=== PATIENT | female | born 1975 | race Caucasian/White ===

== ENCOUNTER 2016-09-10 10:42 | Outpatient (CLI) | payer MEDICAID | END 2016-09-10 10:43 | disposition home or self-care (01) | DX: E78.2 Mixed hyperlipidemia (principal) ==

== ENCOUNTER 2017-02-04 13:48 | Outpatient (CLI) | payer MEDICAID ==
--- NOTE | 2017-02-06 09:56 | XRAY Report ---
THREE-VIEW RIGHT KNEE: 02/04/2017 CLINICAL HISTORY: Right knee pain. FINDINGS: Soft tissue appears normal. Mild to moderate narrowing of the medial femoral compartment is seen. Minimal spurring is seen at the tibial spines and about the medial aspect of the medial fem oral condyle. Mild narrowing of the patellofemoral joint with most pronounced change seen along the lateral aspect of this joint. IMPRESSION: MILD OSTEOARTHRITIS OF THE RIGHT KNEE IS NOTED WITH MOST PRONOUNCED CHANGE SEEN IN THE M EDIAL FEMORAL COMPARTMENT AND THE PATELLOFEMORAL COMPARTMENT. JOB #: [id number] EXT JOB #:[id number]
== END 2017-02-04 13:49 | disposition home or self-care (01) ==
LOC: DI.N 13:48
PROVIDERS: ATTEND Physician Assistant Medical
DX: M17.11 Unilateral primary osteoarthritis, right knee (principal)

== ENCOUNTER 2017-05-06 13:42 | Outpatient (CLI) | payer MEDICAID ==
--- NOTE | 2017-05-06 16:06 | MRI Report ---
EXAM: RIGHT KNEE MRI WITHOUT CONTRAST EXAM DATE: 05/06/2017 02:39 PM. CLINICAL HISTORY: Right knee pain. COMPARISON: Right knee radiography from 02/04/2017. TECHNIQUE: Multiplanar, multisequence T1-weighted and fluid-sensitive sequences of the knee without c ontrast. Other: None. FINDINGS: Some of the images are degraded due to patient-related motion artifact. Bones and articular cartilage: Marginal osteophytes at the femoral condyles, tibial plateau, and omalley lla. Marrow edema and sclerosis at the medial tibial plateau. Lateral subluxation of the patella by a pproximately 7 mm. Grade 4 chondromalacia of the medial compartment. Grade 3-4 chondromalacia at the femoral trochlea. Small subcortical cysts and marrow edema at the lateral trochlear facet. There are areas of grade 4 and grade 3 chondromalacia at the lateral patellar facet. Medial Meniscus: Degeneration and tear of the posterior horn. Lateral Meniscus: The lateral meniscus is intact. Cruciate Ligaments: The anterior and posterior cruciate ligaments are intact. Collateral Ligaments: The medial collateral and lateral collateral ligamentous structures are intact. Tendons: The quadriceps, patellar, semimembranosus, and popliteus tendons are unremarkable. Musculature: No edema or fatty atrophy. Other: Small joint effusion. No popliteal cyst. No loose bodies. The medial and lateral retinacula ar e intact. The subcutaneous tissues and fat pads are unremarkable. IMPRESSION: 1. Technically limited exam due to patient-related motion artifact. 2. Tricompartmental osteoarthritis which is most significant at the medial compartment. 3. Degeneration and tear of the posterior horn medial meniscus. 4. Small joint effusion. [facility] MUSCULOSKELETAL RADIOLOGY SECTION Referring Provider Line: [phone] SITE ID: [id number]
== END 2017-05-06 13:43 | disposition home or self-care (01) ==
LOC: DI 13:42
PROVIDERS: ATTEND Physician Assistant Medical
DX: S83.241A Other tear of medial meniscus, current injury, right knee, initial encounter (principal); M17.11 Unilateral primary osteoarthritis, right knee; M25.461 Effusion, right knee

== ENCOUNTER 2017-05-07 08:30 | Outpatient (CLI) | payer MEDICAID ==
--- NOTE | 2017-05-07 12:42 | XRAY Report ---
THREE-VIEW LUMBAR SPINE: 05/07/2017 CLINICAL INDICATION: Acute back pain. FINDINGS: AP, lateral, coned-down views of the lumbar spine demonstrate mild degenerative disc and f acet disease. There is a bilateral L5 pars defect present, with 2 cm anterolisthesis of L5 on S1. N o compression fracture is seen. IMPRESSION: DEGENERATIVE CHANGES, WITH ANTEROLISTHESIS OF L5 ON S1. JOB #: [id number] EXT JOB #:[id number]
== END 2017-05-07 08:31 | disposition home or self-care (01) ==
LOC: DI.N 08:30
PROVIDERS: ATTEND Physician Assistant Medical
DX: M51.36 Other intervertebral disc degeneration, lumbar region (principal); M47.896 Other spondylosis, lumbar region; M43.17 Spondylolisthesis, lumbosacral region
CPT/HCPCS: 72100

== ENCOUNTER 2017-05-21 08:41 | Outpatient (CLI) | payer MEDICAID | END 2017-05-21 08:42 | disposition home or self-care (01) | LOC: SC 08:41 | PROVIDERS: ATTEND Nurse Practitioner Family | DX: G47.33 Obstructive sleep apnea (adult) (pediatric) (principal) | CPT/HCPCS: 99212; 99214 ==

== ENCOUNTER 2017-10-17 08:00 | Outpatient (CLI) | payer MEDICAID ==
[2017-10-17 12:55] LABS: BASOPHILS % (AUTO) 0.5 %; EOSINOPHILS # (AUTO) 0.3 10^3/uL (0.0-0.7); EOSINOPHILS % (AUTO) 3.4 %; HGB - HEMOGLOBIN 14.5 g/dL (12.0-16.0); LYMPHOCYTES # (AUTO) 3.2 10^3/uL (1.5-3.5); LYMPHOCYTES % (AUTO) 35.4 %; MEAN CORPUSCULAR HEMOGLOBIN 32.2 pg (27.0-31.0); MEAN CORPUSCULAR HGB CONC 34.7 g/dL (32.0-36.0); MEAN PLATELET VOLUME 10.4 fL (7.9-10.8); MONOCYTES # (AUTO) 0.4 10^3/uL (0.0-1.0); MONOCYTES % (AUTO) 4.8 %; NEUTROPHILS # (AUTO) 5.1 10^3/uL (1.5-6.6); NEUTROPHILS % (AUTO) 55.9 %; PLT - PLATELET COUNT 197 10^3/uL (130-450); RED BLOOD COUNT 4.51 10^6/uL (4.20-5.40); RED CELL DISTRIBUTION WIDTH 13.2 % (12.0-15.0); WHITE BLOOD COUNT 9.2 x10^3/uL (4.8-10.8)
[2017-10-17 13:06] LABS: ALBUMIN/GLOBULIN RATIO 1.2 (1.0-2.2); ALKALINE PHOSPHATASE 64 IU/L (42-121); ALT ALANINE AMINOTRANSFERASE 25 IU/L (10-60); AST ASPARTATE AMINOTRANSFERASE 22 IU/L (10-42); BILIRUBIN,TOTAL 0.5 mg/dL (0.2-1.0); BUN - BLOOD UREA NITROGEN 14 mg/dL (6-20); CALCIUM 9.2 mg/dL (8.5-10.3); CARBON DIOXIDE - CO2 28 mmol/L (21-32); CHLORIDE 99 mmol/L (101-111); CHOL/HDL RATIO 5.1 (<4.4); CHOLESTEROL 247 mg/dL; CREATININE 0.8 mg/dL (0.4-1.0); GFR - MDRD 78 (>89); GLUCOSE 99 mg/dL (70-100); HDL CHOLESTEROL 48 mg/dL; LDL CHOLESTEROL,CALCULATED 145 mg/dL; SODIUM 135 mmol/L (135-145); TOTAL PROTEIN 7.4 g/dL (6.7-8.2); VLDL CHOLESTEROL 54 mg/dL
== END 2017-10-17 08:01 | disposition home or self-care (01) ==
LOC: LAB.WCP 08:00
PROVIDERS: ATTEND Physician Assistant Medical
DX: Z00.00 Encounter for general adult medical examination without abnormal findings (principal)
CPT/HCPCS: 36415; 80053; 80061; 83721; 84443; 85025

== ENCOUNTER 2018-03-19 14:28 | Outpatient (CLI) | payer MEDICAID ==
--- NOTE | 2018-03-19 15:51 | XRAY Report ---
Reason: CERVICAL RADICULOPATHY Procedure Date: 03/19/2018 Accession Number: [id number] / [id number] Procedure: XR - Cervical Spine 2 View CPT Code: FULL RESULT: EXAM: CERVICAL SPINE RADIOGRAPHY EXAM DATE: 03/19/2018 03:15 PM. CLINICAL HISTORY: Cervical radiculopathy. COMPARISONS: None. TECHNIQUE: 3 views. FINDINGS: Alignment: Normal. No spondylolisthesis or scoliosis. Bones: The cervical vertebral bodies and posterior elements are well visualized from the skull base through C7-T1. No fractures or bone lesions. Disks: Disk space height is maintained with small anterior disk osteophyte complexes at C4-C5 and C5-C6 as well as C6-C7. Facets: No significant degenerative changes. Soft Tissues: Normal. No prevertebral soft tissue swelling. The visualized lung apices are clear. IMPRESSION: Mild degenerative changes. RAD[facility]
== END 2018-03-19 14:29 | disposition home or self-care (01) ==
LOC: DI 14:28
PROVIDERS: ATTEND Family Medicine
DX: M54.12 Radiculopathy, cervical region (principal)
CPT/HCPCS: 72040

== ENCOUNTER 2018-04-22 10:22 | Outpatient (CLI) | payer MEDICAID ==
[2018-04-22 19:10] LABS: ALBUMIN/GLOBULIN RATIO 1.2 (1.0-2.2); ALKALINE PHOSPHATASE 67 IU/L (42-121); ALT ALANINE AMINOTRANSFERASE 15 IU/L (10-60); AST ASPARTATE AMINOTRANSFERASE 16 IU/L (10-42); BILIRUBIN,TOTAL 0.6 mg/dL (0.2-1.0); BUN - BLOOD UREA NITROGEN 18 mg/dL (6-20); CALCIUM 9.3 mg/dL (8.5-10.3); CARBON DIOXIDE - CO2 25 mmol/L (21-32); CHLORIDE 102 mmol/L (101-111); CHOL/HDL RATIO 5.1 (<4.4); CHOLESTEROL 264 mg/dL; CREATININE 0.7 mg/dL (0.4-1.0); GFR - MDRD 91 (>89); GLUCOSE 100 mg/dL (70-100); HDL CHOLESTEROL 52 mg/dL; LDL CHOLESTEROL,CALCULATED 174 mg/dL; LDL/HDL RATIO 3.3 (<4.4); SODIUM 137 mmol/L (135-145); TOTAL PROTEIN 7.3 g/dL (6.7-8.2); VLDL CHOLESTEROL 38 mg/dL
== END 2018-04-22 10:23 | disposition home or self-care (01) ==
LOC: LAB.WCP 10:22
PROVIDERS: ATTEND Physician Assistant Medical
DX: E78.2 Mixed hyperlipidemia (principal)
CPT/HCPCS: 36415; 80053; 80061; 83721

== ENCOUNTER 2018-08-06 08:00 | Outpatient (CLI) | payer MEDICAID ==
[2018-08-06 19:09] LABS: BASOPHILS # (AUTO) 0.1 10^3/uL (0.0-0.1); BASOPHILS % (AUTO) 0.5 %; EOSINOPHILS # (AUTO) 0.5 10^3/uL (0.0-0.7); EOSINOPHILS % (AUTO) 4.3 %; HGB - HEMOGLOBIN 14.8 g/dL (12.0-16.0); LYMPHOCYTES # (AUTO) 2.8 10^3/uL (1.5-3.5); LYMPHOCYTES % (AUTO) 24.6 %; MEAN CORPUSCULAR HEMOGLOBIN 31.9 pg (27.0-31.0); MEAN CORPUSCULAR HGB CONC 33.1 g/dL (32.0-36.0); MEAN CORPUSCULAR VOLUME 96.4 fL (81.0-99.0); MEAN PLATELET VOLUME 9.5 fL (7.9-10.8); MONOCYTES # (AUTO) 0.6 10^3/uL (0.0-1.0); MONOCYTES % (AUTO) 5.3 %; NEUTROPHILS # (AUTO) 7.3 10^3/uL (1.5-6.6); NEUTROPHILS % (AUTO) 65.3 %; PLT - PLATELET COUNT 204 10^3/uL (130-450); RED BLOOD COUNT 4.62 10^6/uL (4.20-5.40); RED CELL DISTRIBUTION WIDTH 13.3 % (12.0-15.0); WHITE BLOOD COUNT 11.3 x10^3/uL (4.8-10.8)
[2018-08-06 19:22] LABS: RHEUMATOID FACTOR NEGATIVE (Negative)
[2018-08-06 19:31] LABS: CRP - C-REACTIVE PROTEIN < 1.0 mg/dL (0-1.0)
[2018-08-08 13:22] LABS: ANA SCREEN NEGATIVE (NEGATIVE)
== END 2018-08-06 23:59 | disposition home or self-care (01) ==
LOC: LAB.WCP 08:00
PROVIDERS: ATTEND Physician Assistant Medical
DX: M25.50 Pain in unspecified joint (principal)
CPT/HCPCS: 36415; 84550; 85025; 85651; 86038; 86140; 86430

== ENCOUNTER 2018-10-28 10:37 | Outpatient (CLI) | payer MEDICAID | END 2018-10-28 10:38 | disposition home or self-care (01) | LOC: SC 10:37 | PROVIDERS: ATTEND Nurse Practitioner Family | DX: G47.33 Obstructive sleep apnea (adult) (pediatric) (principal) | CPT/HCPCS: 99212; 99214 ==

== ENCOUNTER 2019-07-27 08:00 | Outpatient (CLI) | payer MEDICAID ==
[2019-07-27 13:01] LABS: BASOPHILS # (AUTO) 0.1 10^3/uL (0.0-0.1); BASOPHILS % (AUTO) 0.6 %; EOSINOPHILS # (AUTO) 0.6 10^3/uL (0.0-0.7); EOSINOPHILS % (AUTO) 6.5 %; HGB - HEMOGLOBIN 14.5 g/dL (12.0-16.0); LYMPHOCYTES # (AUTO) 3.4 10^3/uL (1.5-3.5); LYMPHOCYTES % (AUTO) 38.4 %; MEAN CORPUSCULAR HEMOGLOBIN 31.5 pg (27.0-31.0); MEAN CORPUSCULAR VOLUME 95.2 fL (81.0-99.0); MEAN PLATELET VOLUME 11.5 fL (7.9-10.8); MONOCYTES # (AUTO) 0.5 10^3/uL (0.0-1.0); MONOCYTES % (AUTO) 5.6 %; NEUTROPHILS # (AUTO) 4.3 10^3/uL (1.5-6.6); NEUTROPHILS % (AUTO) 48.6 %; PLT - PLATELET COUNT 226 10^3/uL (130-450); RED BLOOD COUNT 4.61 10^6/uL (4.20-5.40); RED CELL DISTRIBUTION WIDTH 12.5 % (12.0-15.0); WHITE BLOOD COUNT 8.8 x10^3/uL (4.8-10.8)
[2019-07-27 13:18] LABS: ALBUMIN 3.9 g/dL (3.2-5.5); ALBUMIN/GLOBULIN RATIO 1.2 (1.0-2.2); ALKALINE PHOSPHATASE 69 IU/L (42-121); ALT ALANINE AMINOTRANSFERASE 18 IU/L (10-60); AST ASPARTATE AMINOTRANSFERASE 17 IU/L (10-42); BILIRUBIN,TOTAL 0.6 mg/dL (0.2-1.0); BUN - BLOOD UREA NITROGEN 19 mg/dL (6-20); CALCIUM 9.3 mg/dL (8.5-10.3); CARBON DIOXIDE - CO2 27 mmol/L (21-32); CHLORIDE 101 mmol/L (101-111); CHOL/HDL RATIO 4.3 (<4.4); CHOLESTEROL 289 mg/dL; CREATININE 0.7 mg/dL (0.4-1.0); GFR - MDRD 90 (>89); GLUCOSE 109 mg/dL (70-100); HDL CHOLESTEROL 68 mg/dL; LDL CHOLESTEROL,CALCULATED 184 mg/dL; LDL/HDL RATIO 2.7 (<4.4); SODIUM 136 mmol/L (135-145); TOTAL PROTEIN 7.1 g/dL (6.7-8.2); VLDL CHOLESTEROL 37 mg/dL
== END 2019-07-27 23:59 | disposition home or self-care (01) ==
LOC: LAB.WCP 08:00
PROVIDERS: ATTEND Physician Assistant Medical
DX: Z00.00 Encounter for general adult medical examination without abnormal findings (principal); E78.2 Mixed hyperlipidemia
CPT/HCPCS: 36415; 80053; 80061; 83721; 84443; 85025

== ENCOUNTER 2019-09-14 17:11 | Emergency (ER) | payer MEDICAID ==
--- NOTE | 2019-09-14 18:00 | XRAY Report ---
Reason: CHEST PAIN Procedure Date: 09/14/2019 Accession Number: [id number] / [id number] Procedure: XR - Chest 2 View X-Ray CPT Code: 93781 Final Report FULL RESULT: EXAM: CHEST RADIOGRAPHY EXAM DATE: 09/14/2019 05:37 PM. CLINICAL HISTORY: CHEST PAIN. COMPARISON: CHEST 2 VIEW PA/LAT 06/09/2018 11:27 AM. TECHNIQUE: 2 views. FINDINGS: LUNGS: The lungs are clear. PLEURA: No significant pleural effusion. No clinically significant pneumothorax. MEDIASTINUM: The cardiomediastinal silhouette is unremarkable. BONES: No suspicious osseous lesions. IMPRESSION: No acute cardiopulmonary abnormality. RADIA
[2019-09-14 18:06] LABS: BASOPHILS # (AUTO) 0.1 10^3/uL (0.0-0.1); BASOPHILS % (AUTO) 0.8 %; EOSINOPHILS # (AUTO) 0.6 10^3/uL (0.0-0.7); EOSINOPHILS % (AUTO) 5.9 %; HGB - HEMOGLOBIN 14.6 g/dL (12.0-16.0); LYMPHOCYTES # (AUTO) 3.2 10^3/uL (1.5-3.5); LYMPHOCYTES % (AUTO) 31.7 %; MEAN CORPUSCULAR HEMOGLOBIN 32.3 pg (27.0-31.0); MEAN CORPUSCULAR HGB CONC 34.3 g/dL (32.0-36.0); MEAN CORPUSCULAR VOLUME 94.2 fL (81.0-99.0); MEAN PLATELET VOLUME 10.7 fL (7.9-10.8); MONOCYTES # (AUTO) 0.5 10^3/uL (0.0-1.0); NEUTROPHILS # (AUTO) 5.7 10^3/uL (1.5-6.6); NEUTROPHILS % (AUTO) 56.3 %; PLT - PLATELET COUNT 211 10^3/uL (130-450); RED BLOOD COUNT 4.52 10^6/uL (4.20-5.40); RED CELL DISTRIBUTION WIDTH 12.2 % (12.0-15.0); WHITE BLOOD COUNT 10.1 x10^3/uL (4.8-10.8)
[2019-09-14 18:18] LABS: ALBUMIN 4.1 g/dL (3.2-5.5); ALBUMIN/GLOBULIN RATIO 1.2 (1.0-2.2); BILIRUBIN,TOTAL 0.5 mg/dL (0.2-1.0); CALCIUM 9.4 mg/dL (8.5-10.3); CREATININE 0.7 mg/dL (0.4-1.0); TOTAL PROTEIN 7.6 g/dL (6.7-8.2)
[2019-09-14] MEDS ORDERED: IPRATROPIUM/ALBUTEROL 3 ML NEB INH STA (19:10)
--- NOTE | 2019-09-14 19:16 | ED Physician Documentation ---
History of Present Illness - Stated complaint Stated Complaint: CP - Chief complaint Chief Complaint: Cardiac - History obtained from History obtained from: Patient - History of Present Illness Quality: DISCOMFORT Radiates to: LEFT SHOULDER AND UPPER ARM Improved by: NOTHING Worsened by: EXERTION - Additonal information Additional information: 44 YEAR OLD FEMALE WITH HX OF BRONCHITIS WHO PRESENTS TO THE EMERGENCY DEPARTMENT BECAUSE OF 2-3 DAYS OF SHORTNESS OF BREATH AND FELT LIKE SHE HAD TO USE HER INHALER MORE. SHE CALLED HER DOCTOR'S OFFICE FOR AN INHALER REFILL AND ADMITTED TO EXPERIENCING LEFT SIDED CHEST DISCOMFORT. PATIENT HAD AN EKG DONE AT THE OFFICE AND WAS INSTRUCTED TO COME TO THE EMERGENCY DEPARTMENT FOR FURTHER EVALUATION. SHE QUIT SMOKING 9 MONTHS AGO. PATIENT DENIES FEVER OR CHILLS. SHE REPORTED OF EXERTIONAL DYSPNEA. SHE DENIES ORTHOPNEA. SHE DENIES RECENT SURGERY OR RECENT TRAVELS. PARENTS ARE HEALTHY AND THERE WAS NO FAMILY CARDIAC HISTORY. SHE WAS GIVEN 324 MG ASPIRIN AT HER DOCTOR'S OFFICE. Review of Systems Constitutional: denies: Fever, Chills Eyes: denies: Discharge, Irritation Ears: denies: Ear pain Nose: denies: Rhinorrhea / runny nose Throat: denies: Dental pain / toothache Cardiac: reports: Chest pain / pressure Respiratory: reports: Dyspnea, Wheezing GI: denies: Abdominal Pain, Nausea, Vomiting Skin: denies: Rash Musculoskeletal: denies: Neck pain, Back pain, Extremity pain, Joint pain Psychiatric: denies: Depressed, Suicidal PD PAST MEDICAL HISTORY - Past Medical History Cardiovascular: High cholesterol Respiratory: Sleep apnea, CPAP use Endocrine/Autoimmune: None GI: None : None HEENT: None Psych: Depression, ADD/ADHD Musculoskeletal: Chronic back pain Derm: None - Past Surgical History Past Surgical History: No - Present Medications Home Medications: Ambulatory Orders Medication Instructions Recorded Confirmed Dextroamphetamine/Amphetamine 30 mg 11/23/14 11/23/14 [Adderall 30 mg Tablet] Sertraline HCl [Zoloft] 200 mg 11/23/14 11/23/14 - Allergies Allergies/Adverse Reactions: Allergies Allergy/AdvReac Type Severity Reaction Status Date / Time No Known Drug Allergies Allergy Verified 09/14/19 17:14 - Social History Does the pt smoke?: Yes Smoking Status: Current every day smoker Does the pt drink ETOH?: No Does the pt have substance abuse?: No - Immunizations Immunizations are current?: No Immunizations: TDAP >10years/unknown PD ED PE NORMAL - General General: Alert and oriented X 3, Other - HEENT HEENT: Atraumatic - Neck Neck: Supple, no meningeal sign - Cardiac Cardiac: RRR - Respiratory Respiratory: Other (MILD EXPIRATORY WHEEZES) - Abdomen Abdomen: Normal bowel sounds, Soft - Derm Derm: Normal color, Warm and dry - Extremities Extremities: No deformity, No tenderness to palpate, Normal ROM s pain - Neuro Neuro: Alert and oriented X 3 Eye Opening: Spontaneous Motor: Obeys Commands Verbal: Oriented GCS Score: 15 - Psych Psych: Normal mood Results - Vitals Vitals: Oxygen O2 Source Room air - EKG (time done) 1721 Rate: Rate (enter#) (76) Sheldon: Normal Intervals: Normal SC, Prolonged QT QRS: Normal Ischemia: Non specific changes - Labs Labs: Laboratory Tests 09/14/19 09/14/19 09/14/19 18:02 18:02 18:02 WBC 10.1 RBC 4.52 Hgb 14.6 Hct 42.6 MCV 94.2 MCH 32.3 H MCHC 34.3 RDW 12.2 Plt Count 211 MPV 10.7 Neut # (Auto) 5.7 Lymph # (Auto) 3.2 Evangeline # (Auto) 0.5 Eos # (Auto) 0.6 Baso # (Auto) 0.1 Absolute Nucleated RBC 0.00 Nucleated RBC % 0.0 D-Dimer Sodium 137 Potassium 3.6 Chloride 98 L Carbon Dioxide 28 Anion Gap 11.0 BUN 15 Creatinine 0.7 Estimated GFR (MDRD) 90 Glucose 104 H Calcium 9.4 Magnesium Total Bilirubin 0.5 AST 19 ALT 21 Alkaline Phosphatase 65 Troponin I High Sens 8.0 B-Natriuretic Peptide Total Protein 7.6 Albumin 4.1 Globulin 3.5 Albumin/Globulin Ratio 1.2 Lipase 29 Serum HCG, Qual 09/14/19 09/14/19 09/14/19 18:02 18:02 18:02 WBC RBC Hgb Hct MCV MCH MCHC RDW Plt Count MPV Neut # (Auto) Lymph # (Auto) Evangeline # (Auto) Eos # (Auto) Baso # (Auto) Absolute Nucleated RBC Nucleated RBC % D-Dimer < 200.0 L Sodium Potassium Chloride Carbon Dioxide Anion Gap BUN Creatinine Estimated GFR (MDRD) Glucose Calcium Magnesium Total Bilirubin AST ALT Alkaline Phosphatase Troponin I High Sens B-Natriuretic Peptide 14 Total Protein Albumin Globulin Albumin/Globulin Ratio Lipase Serum HCG, Qual NEGATIVE 09/14/19 09/14/19 18:03 19:50 WBC RBC Hgb Hct MCV MCH MCHC RDW Plt Count MPV Neut # (Auto) Lymph # (Auto) Evangeline # (Auto) Eos # (Auto) Baso # (Auto) Absolute Nucleated RBC Nucleated RBC % D-Dimer Sodium Potassium Chloride Carbon Dioxide Anion Gap BUN Creatinine Estimated GFR (MDRD) Glucose Calcium Magnesium 2.2 Total Bilirubin AST ALT Alkaline Phosphatase Troponin I High Sens 7.2 B-Natriuretic Peptide Total Protein Albumin Globulin Albumin/Globulin Ratio Lipase Serum HCG, Qual PD MEDICAL DECISION MAKING - ED course Complexity details: re-evaluated patient, d/w patient ED course: 44 YEAR OLD FEMALE WHO PRESENTED TO THE EMERGENCY DEPARTMENT OF SHORTNESS OF BREATH, CHEST PAIN. EKG DID NOT SHOW ST ELEVATION MYOCARDIAL INFARCTION. NONSPECIFIC ST CHANGES WERE NOTED. SERIAL TROPONINS WERE NEGATIVE. D-DIMER WAS NEGATIVE. PATIENT WAS GIVEN A DUONBE TREATMENT WITH IMPROVEMENT WITH HER BREATHING. SYMPTOMS WERE MOST CONSISTENT WITH BRONCHITIS. SHE WAS GIVEN 1 DOSE OF DECADRON HERE IN THE EMERGENCY DEPARTMENT. I RECOMMEND OUTPATIENT FOLLOW UP ABOUT HER CHEST PAIN AND SHORTNESS OF BREATH. HEART SCORE OF 3. DIAGNOSIS AND TREATMENT PLAN WERE DISCUSSED. OUTPATIENT FOLLOW UP WITH PCP IN 1 WEEK WAS RECOMMENDED. STRICT RETURN INSTRUCTIONS WERE GIVEN. PATIENT WAS DISCHARGED IN STABLE CONDITION. Departure - Departure Disposition: 01 Home, Self Care Clinical Impression: Chest pain, Reactive airway disease, Elevated BP without diagnosis of hypertension Condition: Stable Instructions: Risk Factors High Blood Pressure, ED Wheezing, ED Chest Pain Atypical Unkn Cause Follow-Up: Christi Mathew PA-C [Primary Care Provider] - Within 1 week Comments: PLEASE FOLLOW UP WITH YOUR REGULAR DOCTOR SOON POSSIBLE IN 1 WEEK. YOUR BLOOD PRESSURE WAS ELEVATED AND PLEASE FOLLOW UP WITH YOUR DOCTOR FOR RECHECK. Discharge Date/Time: 09/14/19 20:49
[2019-09-14 19:37] LABS: HCG,QUALITATIVE BLOOD NEGATIVE
[2019-09-14 20:26] VITALS: BP 144/90
[2019-09-14] MEDS ORDERED: CHERRY SYRUP 10 ML UDC PO ONE (20:34)
[2019-09-14] MEDS ORDERED: DEXAMETHASONE 10 MG/ML VIAL PO STA (20:34)
== END 2019-09-14 20:49 | disposition home or self-care (01) ==
LOC: ED 17:11
DX: R07.89 Other chest pain (principal); J45.909 Unspecified asthma, uncomplicated; R94.31 Abnormal electrocardiogram [ECG] [EKG]; R03.0 Elevated blood-pressure reading, without diagnosis of hypertension; Z87.891 Personal history of nicotine dependence
CPT/HCPCS: 36415; 71046; 80053; 83690; 83735; 83880; 84484; 84703; 85025; 85379; 93005; 94640; 94664; 99284; A9270

== ENCOUNTER 2020-07-26 08:00 | Outpatient (CLI) | payer MEDICAID ==
[2020-07-26 18:56] LABS: ALBUMIN 4.2 g/dL (3.2-5.5); ALBUMIN/GLOBULIN RATIO 1.2 (1.0-2.2); ALKALINE PHOSPHATASE 77 IU/L (42-121); ALT ALANINE AMINOTRANSFERASE 19 IU/L (10-60); AST ASPARTATE AMINOTRANSFERASE 16 IU/L (10-42); BILIRUBIN,TOTAL 0.8 mg/dL (0.2-1.0); BUN - BLOOD UREA NITROGEN 18 mg/dL (6-20); CALCIUM 9.8 mg/dL (8.5-10.3); CARBON DIOXIDE - CO2 28 mmol/L (21-32); CHLORIDE 101 mmol/L (101-111); CHOL/HDL RATIO 5.1 (<4.4); CHOLESTEROL 290 mg/dL; CREATININE 0.6 mg/dL (0.4-1.0); GLUCOSE 107 mg/dL (70-100); HDL CHOLESTEROL 57 mg/dL; LDL CHOLESTEROL,CALCULATED 190 mg/dL; LDL/HDL RATIO 3.3 (<4.4); SODIUM 138 mmol/L (135-145); TOTAL PROTEIN 7.7 g/dL (6.7-8.2); VLDL CHOLESTEROL 43 mg/dL
[2020-07-26 19:01] LABS: BASOPHILS # (AUTO) 0.1 10^3/uL (0.0-0.1); BASOPHILS % (AUTO) 0.9 %; EOSINOPHILS # (AUTO) 0.7 10^3/uL (0.0-0.7); EOSINOPHILS % (AUTO) 8.6 %; HGB - HEMOGLOBIN 15.4 g/dL (12.0-16.0); LYMPHOCYTES # (AUTO) 2.2 10^3/uL (1.5-3.5); LYMPHOCYTES % (AUTO) 28.6 %; MEAN CORPUSCULAR HEMOGLOBIN 31.6 pg (27.0-31.0); MEAN CORPUSCULAR HGB CONC 33.4 g/dL (32.0-36.0); MEAN CORPUSCULAR VOLUME 94.5 fL (81.0-99.0); MEAN PLATELET VOLUME 11.5 fL (7.9-10.8); MONOCYTES # (AUTO) 0.4 10^3/uL (0.0-1.0); MONOCYTES % (AUTO) 5.3 %; NEUTROPHILS # (AUTO) 4.3 10^3/uL (1.5-6.6); NEUTROPHILS % (AUTO) 56.3 %; PLT - PLATELET COUNT 251 10^3/uL (130-450); RED BLOOD COUNT 4.88 10^6/uL (4.20-5.40); RED CELL DISTRIBUTION WIDTH 12.1 % (12.0-15.0); WHITE BLOOD COUNT 7.7 x10^3/uL (4.8-10.8)
[2020-07-26 19:02] LABS: THYROID STIMULATING HORMONE 1.45 uIU/mL (0.34-5.60)
[2020-07-26 19:04] LABS: FREE T4 (FREE THYROXINE) 0.87 ng/dL (0.58-1.64)
== END 2020-07-26 23:59 | disposition home or self-care (01) ==
LOC: LAB.WCP 08:00
PROVIDERS: ATTEND Physician Assistant Medical
DX: Z00.00 Encounter for general adult medical examination without abnormal findings (principal)
CPT/HCPCS: 36415; 80053; 80061; 83721; 84439; 84443; 85025

== ENCOUNTER 2020-07-26 17:02 | Outpatient (CLI) | payer MEDICAID ==
--- NOTE | 2020-07-26 17:31 | XRAY Report ---
PROCEDURE: Chest 2 View X-Ray INDICATIONS: INTERMITTENT ASTHMA TECHNIQUE: 2 view(s) of the chest. COMPARISON: None. FINDINGS: Surgical changes and devices: None. Lungs and pleura: No pleural effusions or pneumothorax. Lungs are clear. Mediastinum: Mediastinal contours are normal. Heart size is normal. Bones and chest wall: No suspicious bony abnormalities. Soft tissues appear unremarkable. IMPRESSION: Normal chest. Reviewed by: John Galan MD on 07/26/2020 5:30 PM PST Approved by: John Galan MD on 07/26/2020 5:30 PM PST Station ID: [id number]
== END 2020-07-26 17:03 | disposition home or self-care (01) ==
LOC: DI.N 17:02
PROVIDERS: ATTEND Physician Assistant Medical
DX: J45.20 Mild intermittent asthma, uncomplicated (principal)

== ENCOUNTER 2020-12-27 10:30 | Outpatient (CLI) | payer MEDICAID ==
--- NOTE | 2020-12-27 11:11 | SLEEP CARE CONSULTATION ---
Information from patient questionnaire entered by Kady Santillan. I have reviewed and concur with the information entered by Kady Santillan. This document represents the service I personally performed and the decisions made by , Gayla Yang ARNP. History of Present Illness Service Date and Time: 12/27/2020 1030 Previous diagnosis: Extremely Severe, Obstructive Sleep Apnea-Hypopnea Syndrome AHI: 113.8 (in 2011) Reason for follow up: annual (last seen 10/2018) Equipment type: CPAP Equipment obtained from: [employer] (getting supplies as needed) Mask style: Full face Backup mask available: Yes (old mask) Last cushion change: 4 months Prior sleep studies: Yes Year and Where: 2011 - [facility] HPI additional information: VALERIO WADE was diagnosed to have extremely severe, AHI 113.8, obstructive sleep apnea-hypopnea syndrome and returned today for CPAP therapy annual follow- up. CPAP Compliance Data - Data Reviewed with Patient Average duration of nightly device use: 11 hr 3 min Compliance rate %: 93.9 (180 days) Current pressure setting (cmH2O): 13 Humidity settin Average residual AHI: 6.7 Average large leak: 5 min 58 sec Subjective Patient concerns: reports: mask discomfort, air blowing in eyes, other (general issues). denies: aerophagia, mask leak noise, condensation in mask/hose, nasal congestion, dry mouth, nose, throat, epistaxis Observed to snore while using device: No (don't know) Current pressure setting perceived as: comfortable On therapy, patient: reports: sleeping better, awakening more refreshed, being more awake and alert during the day, more rested overall. denies: drowsiness while driving Initial [place] Sleepiness Scale score: 9 (in 2012) Current [place] Sleepiness Scale score: 10 Allergies and Home Medications Home medication list reviewed: Yes Allergy and home medication list: stopped cymbalta started Prozac Adderall Review of Systems Review of systems same as previous: Yes (no changes) Physical Exam Heart Rate: 71 O2 Saturation: 97 Height: 5 ft 7 in Weight: 295 lb Body Mass Index: 46.2 BMI Classification: Morbidly Obese Impression and Plan 1. Obstructive Sleep Apnea-Hypopnea Syndrome, extremely severe, with good treatment compliance and fair apnea control with mildly elevated residual AHI. On CPAP therapy, the patient has better sleep quality and is more rested overall. The patients pressure will be changed to autoCPAP 14 cmH20 for elevation of residual AHI. Patient advised to contact me if pressure change is uncomfortable so that it can be adjusted. Goals for apnea control discussed. Patient would like to try a different mask she is using currently sores on her face seem to be permanent. I will write for mask refitting. Patient's apnea severity and rationale for treatment to reduce apnea, improve sleep quality and reduce cardiovascular and cerebrovascular events was reviewed. I also reviewed the benefit of consistent device use of CPAP for depression and fibromyalgia. * Mask refitting * Change auto CPAP pressure to 14 cmH2O * Notify me if snoring with mask or feeling that the pressure is too much or too little * Attempt to lose weight * Call this office if any problems using CPAP * Return for follow up in 1 year, or sooner if concerns arise Counseling Topics: Spare mask, Weight loss health impact Visit Type: In Office Time Spent with Patient (minutes): 22 Provider Statement: I spent 100% of the Face to Face Visit with the patient with greater than 50% spent counseling the patient and coordination of care.
== END 2020-12-27 10:31 | disposition home or self-care (01) ==
LOC: SC 10:30
PROVIDERS: ATTEND Nurse Practitioner Family
DX: G47.33 Obstructive sleep apnea (adult) (pediatric) (principal); E66.01 Morbid (severe) obesity due to excess calories; Z68.42 Body mass index [BMI] 45.0-49.9, adult
CPT/HCPCS: 99212; 99213

== ENCOUNTER 2021-02-09 08:00 | Outpatient (CLI) | payer MEDICAID ==
[2021-02-09 17:55] LABS: CHOL/HDL RATIO 3.3 (<4.4); CHOLESTEROL 277 mg/dL; HDL CHOLESTEROL 84 mg/dL; LDL CHOLESTEROL,CALCULATED 173 mg/dL; LDL/HDL RATIO 2.1 (<4.4); TRIGLYCERIDES 99 mg/dL; VLDL CHOLESTEROL 20 mg/dL
== END 2021-02-09 23:59 | disposition home or self-care (01) ==
LOC: LAB.WCP 08:00
PROVIDERS: ATTEND Physician Assistant Medical
DX: E78.2 Mixed hyperlipidemia (principal)
CPT/HCPCS: 36415; 80061; 83721

== ENCOUNTER 2021-07-12 15:51 | Outpatient (CLI) | payer MEDICAID ==
[2021-07-12 16:14] VITALS: BP 138/78
--- NOTE | 2021-07-12 16:14 | SLEEP CARE CONSULTATION ---
Information from patient questionnaire entered by Angelique Odom MA. I have reviewed and concur with the information entered by Angelique Odom MA. This document represents the service I personally performed and the decisions made by , Gayla Yang ARNP. History of Present Illness Service Date and Time: 07/12/2021 1551 Previous diagnosis: Extremely Severe, Obstructive Sleep Apnea-Hypopnea Syndrome AHI: 113.8 (in 2011) Reason for follow up: first compliance (SET UP 04/18, REPL DEVICE, RESMED/ROTECH), first compliance after device update Equipment type: CPAP Equipment obtained from: [email or web address] (getting supplies as needed) Mask style: Full face Backup mask available: Yes (old mask) Last cushion change: a few days ago Prior sleep studies: Yes Year and Where: 2011 - [facility] HPI additional information: VALERIO WADE was diagnosed to have extremely severe, AHI 113.8, obstructive sleep apnea-hypopnea syndrome and returned today for CPAP therapy first compliance after updating device follow-up. Sleep Study - Results Prior sleep studies: Yes Year and Where: 2011 - [facility] CPAP Compliance Data - Data Reviewed with Patient Average duration of nightly device use: 11 HOURS 6 MINUTES Compliance rate %: 90 Current pressure setting (cmH2O): 14 Average residual AHI: 6.6 Central apnea: .6 Obstructive apnea: 4.3 Subjective Patient concerns: denies: aerophagia, mask discomfort, air blowing in eyes, mask leak noise, condensation in mask/hose, nasal congestion, dry mouth, nose, throat, epistaxis, other Observed to snore while using device: No Current pressure setting perceived as: comfortable On therapy, patient: reports: sleeping better, awakening more refreshed, being more awake and alert during the day, more rested overall. denies: drowsiness while driving Initial [place] Sleepiness Scale score: 9 (in 2011) Current [place] Sleepiness Scale score: 6 (2020) Allergies and Home Medications Home medication list reviewed: Yes (Meloxicam ) Review of Systems Review of systems same as previous: No (getting eyelid procedure in July ()) Physical Exam Vital signs obtained and entered by: CARLA DELGADO Blood Pressure: 138/78 (LEFT) Cuff size: wrist Heart Rate: 89 O2 Saturation: 97 (CLOTH MASK) Height: 5 ft 7 in Weight: 295 lb Body Mass Index: 46.2 BMI Classification: Morbidly Obese Impression and Plan 1. Obstructive Sleep Apnea-Hypopnea Syndrome, extremely severe, with good treatment compliance and fair apnea control with minimal elevation of residual AHI. On CPAP therapy, the patient has better sleep quality and is more rested overall. The patients pressure will be changed to autoCPAP 15 cmH20 for elevation of residual AHI. Patient advised to contact me if pressure change is uncomfortable so that it can be adjusted. Goals for apnea control discussed. Patient's apnea severity and rationale for treatment to reduce apnea, improve sleep quality and reduce cardiovascular and cerebrovascular events was reviewed. I also reviewed the benefit of consistent device use of CPAP for depression and fibromyalgia. Patient current BMI is 46.2. Obesity increases the risk of apnea, CPAP pressure requirements and overall health risks especially cardiovascular and diabetes. Thus patient is advised to try to lose weight. Weight loss can be done with reducing portion size, reducing refined foods and balancing content with vegetables, fruit and whole grain foods. In addition, patient encouraged to get regular exercise. Patient was encouraged to lose weight for their overall health and to reduce apneas. She voiced understanding. * Change auto CPAP pressure to 15 cmH2O * Notify me if snoring with mask or feeling that the pressure is too much or too little * Attempt to lose weight * Call this office if any problems using CPAP * Return for follow up in 1 year, or sooner if concerns arise Counseling Topics: Spare mask, Weight loss health impact Visit Type: In Office Time Spent with Patient (minutes): 10 Provider Statement: I spent 100% of the Face to Face Visit with the patient with greater than 50% spent counseling the patient and coordination of care.
== END 2021-07-12 15:52 | disposition home or self-care (01) ==
LOC: SC 15:51
PROVIDERS: ATTEND Nurse Practitioner Family
DX: G47.33 Obstructive sleep apnea (adult) (pediatric) (principal); E66.01 Morbid (severe) obesity due to excess calories; Z68.42 Body mass index [BMI] 45.0-49.9, adult
CPT/HCPCS: 99212

== ENCOUNTER 2021-08-14 08:00 | Outpatient (CLI) | payer MEDICAID ==
[2021-08-14 10:47] LABS: MUDS CUTOFF CONCENTRATIONS CUTOFF CONC BELOW:
[2021-08-14 18:50] LABS: BASOPHILS # (AUTO) 0.1 10^3/uL (0.0-0.1); BASOPHILS % (AUTO) 0.7 %; EOSINOPHILS # (AUTO) 0.4 10^3/uL (0.0-0.7); HGB - HEMOGLOBIN 14.3 g/dL (12.0-16.0); LYMPHOCYTES % (AUTO) 27.1 %; MEAN CORPUSCULAR HGB CONC 31.8 g/dL (32.0-36.0); MEAN CORPUSCULAR VOLUME 97.6 fL (81.0-99.0); MEAN PLATELET VOLUME 11.8 fL (7.9-10.8); MONOCYTES # (AUTO) 0.5 10^3/uL (0.0-1.0); MONOCYTES % (AUTO) 6.5 %; NEUTROPHILS # (AUTO) 4.5 10^3/uL (1.5-6.6); NEUTROPHILS % (AUTO) 60.4 %; PLT - PLATELET COUNT 221 10^3/uL (130-450); RED BLOOD COUNT 4.61 10^6/uL (4.20-5.40); RED CELL DISTRIBUTION WIDTH 12.8 % (12.0-15.0); WHITE BLOOD COUNT 7.4 x10^3/uL (4.8-10.8)
[2021-08-14 18:56] LABS: AMPHETAMINE SCREEN,URINE POSITIVE (NEGATIVE); BARBITURATE SCREEN,UR NEGATIVE (NEGATIVE); BENZODIAZEPINES SCREEN, URINE NEGATIVE (NEGATIVE); COCAINE SCREEN URINE NEGATIVE (NEGATIVE); METHADONE SCREEN, URINE NEGATIVE (NEGATIVE); METHAMPHETAMINES SCREEN, URINE NEGATIVE (NEGATIVE); OPIATE SCREEN, URINE NEGATIVE (NEGATIVE); OXYCODONE SCREEN, URINE NEGATIVE (NEGATIVE); PROPOXYPHENE SCREEN, URINE NEGATIVE (NEGATIVE); THC CANNABINOID SCREEN, URINE POSITIVE (NEGATIVE); TRICYCLIC ANTIDEPRESSANT,URINE NEGATIVE (NEGATIVE)
[2021-08-14 19:47] LABS: ALBUMIN/GLOBULIN RATIO 1.2 (1.0-2.2); ALKALINE PHOSPHATASE 70 IU/L (42-121); ALT ALANINE AMINOTRANSFERASE 18 IU/L (10-60); AST ASPARTATE AMINOTRANSFERASE 16 IU/L (10-42); BILIRUBIN,TOTAL 0.5 mg/dL (0.2-1.0); BUN - BLOOD UREA NITROGEN 19 mg/dL (6-20); CALCIUM 8.7 mg/dL (8.5-10.3); CARBON DIOXIDE - CO2 27 mmol/L (21-32); CHLORIDE 98 mmol/L (101-111); CHOL/HDL RATIO 3.6 (<4.4); CHOLESTEROL 292 mg/dL; CREATININE 0.7 mg/dL (0.4-1.0); GFR - MDRD 90 (>89); GLUCOSE 98 mg/dL (70-100); HDL CHOLESTEROL 82 mg/dL; LDL CHOLESTEROL,CALCULATED 187 mg/dL; LDL/HDL RATIO 2.3 (<4.4); POTASSIUM 3.8 mmol/L (3.5-5.0); SODIUM 135 mmol/L (135-145); TOTAL PROTEIN 7.3 g/dL (6.7-8.2); TRIGLYCERIDES 115 mg/dL; VLDL CHOLESTEROL 23 mg/dL
[2021-08-14 19:48] LABS: THYROID STIMULATING HORMONE 2.62 uIU/mL (0.34-5.60)
== END 2021-08-14 23:59 | disposition home or self-care (01) ==
LOC: LAB.WCP 08:00
PROVIDERS: ATTEND Psychiatry & Neurology Psychiatry
DX: Z00.00 Encounter for general adult medical examination without abnormal findings (principal); Z79.899 Other long term (current) drug therapy; E78.2 Mixed hyperlipidemia
CPT/HCPCS: 36415; 80053; 80061; 80306; 83721; 84443; 85025

== ENCOUNTER 2021-09-25 11:01 | Outpatient (CLI) | payer MEDICAID | END 2021-09-25 11:02 | disposition home or self-care (01) | LOC: NS 11:01 | PROVIDERS: ATTEND Physician Assistant Medical | DX: Z71.3 Dietary counseling and surveillance (principal); E66.01 Morbid (severe) obesity due to excess calories; Z68.42 Body mass index [BMI] 45.0-49.9, adult | CPT/HCPCS: 97802 ==

== ENCOUNTER 2021-10-03 15:27 | Outpatient (CLI) | payer MEDICAID ==
[2021-10-04 04:16] LABS: ESTRADIOL 25 pg/mL; PROGESTERONE <0.5 ng/mL
[2021-10-08 07:06] LABS: HDL LARGE 10145 nmol/L (>6729); LDL MEDIUM 514 nmol/L (<215); LDL PARTICLE NUMBER 2358 nmol/L (<1138); LDL PATTERN A Pattern (A); LDL PEAK SIZE 224.8 Angstrom (>222.9); LDL SMALL 277 nmol/L (<142)
[2021-10-08 17:11] LABS: FREE TESTOSTERONE 2.3 pg/mL (0.1-6.4)
== END 2021-10-03 15:28 | disposition home or self-care (01) ==
LOC: LAB.N 15:27
PROVIDERS: ATTEND Physician Assistant Medical
DX: F32.A Depression, unspecified (principal); E78.2 Mixed hyperlipidemia
CPT/HCPCS: 36415; 81599; 82626; 82670; 82671; 83525; 83704; 84144; 84270; 84402; 84403

== ENCOUNTER 2021-10-09 10:03 | Outpatient (CLI) | payer MEDICAID | END 2021-10-09 10:04 | disposition home or self-care (01) | LOC: NS 10:03 | PROVIDERS: ATTEND Physician Assistant Medical | DX: Z71.3 Dietary counseling and surveillance (principal); E66.01 Morbid (severe) obesity due to excess calories; Z68.42 Body mass index [BMI] 45.0-49.9, adult | CPT/HCPCS: 97803 ==

== ENCOUNTER 2021-10-17 15:48 | Outpatient (CLI) | payer MEDICAID ==
--- NOTE | 2021-10-19 15:09 | Mammography Report ---
BILATERAL DIGITAL SCREENING MAMMOGRAM 3D/2D: 10/17/2021 CLINICAL: Routine screening. Comparison is made to exam dated: 06/04/2016 mammogram - [facility]. There are sc attered fibroglandular elements in both breasts. No significant masses, calcifications, or other findings are seen in either breast. There has been no significant interval change. IMPRESSION: NEGATIVE There is no mammographic evidence of malignancy. A 1 year screening mammogram is recommended. This exam was interpreted at Station ID: [id number]. NOTE: For mammograms, a report in lay terms will be sent to the patient. Approximately 15% of breast malignancies will not be visualized mammographically. In the management of a palpable breast mass, a negative mammogram must not discourage biopsy of a clinically suspicious lesion. Electronically Signed By: Jovani mitchell/leonardo:10/18/2021 09:12:53 ACR BI-RADS Category 1: Negative 3341F PARENCHYMAL PATTERN: (A) - The breast(s) demonstrate(s) scattered fibroglandular densities. BI-RADS CATEGORY: (1) - 1 RECOMMENDATION: (ANNUAL) - Recommend routine annual screening mammography. [id number] 1 year screening LATERALITY: (B)
== END 2021-10-17 15:49 | disposition home or self-care (01) ==
LOC: DI.N 15:48
DX: Z12.31 Encounter for screening mammogram for malignant neoplasm of breast (principal)

== ENCOUNTER 2021-10-30 13:04 | Outpatient (CLI) | payer MEDICAID | END 2021-10-30 13:05 | disposition home or self-care (01) | LOC: NS 13:04 | PROVIDERS: ATTEND Physician Assistant Medical | DX: Z71.3 Dietary counseling and surveillance (principal); E66.01 Morbid (severe) obesity due to excess calories; Z68.42 Body mass index [BMI] 45.0-49.9, adult | CPT/HCPCS: 97803 ==

== ENCOUNTER 2022-04-16 19:59 | Emergency (ER) | payer MEDICAID ==
--- NOTE | 2022-04-16 21:07 | ED Physician Documentation ---
History of Present Illness - Stated complaint Stated Complaint: GLASS IN FOOT - Chief complaint Chief Complaint: Laceration - History obtained from History obtained from: Patient - History of Present Illness Timing: Today Pain level max: 3 Pain level now: 2 - Additonal information Additional information: Patient is a 46-year-old female who presents to the emergency department stating that she believes she may have stepped on a piece of glass in her kitchen tonight. She believes her tetanus shot is up-to-date. She states that she is concerned about a piece of glass being stuck in the bottom of her foot. She states her son tried to take it out with tweezers. They could not feel any glass. She cannot see any glass. She states that a glass bowl was broken about a week ago but she thought she cleaned up all of the pieces. Worse with walking, better with rest. No active bleeding. Review of Systems Constitutional: denies: Fever, Chills : denies: Now [place] [facility] PAST MEDICAL HISTORY - Past Medical History Cardiovascular: High cholesterol Respiratory: Sleep apnea, CPAP use Endocrine/Autoimmune: None GI: None : None HEENT: None Psych: Depression, ADD/ADHD Musculoskeletal: Chronic back pain Derm: None - Past Surgical History Past Surgical History: No - Present Medications Home Medications: Ambulatory Orders Medication Instructions Recorded Confirmed Dextroamphetamine/Amphetamine 30 mg 11/23/14 11/23/14 [Adderall 30 mg Tablet] Sertraline HCl [Zoloft] 200 mg 11/23/14 11/23/14 - Allergies Allergies/Adverse Reactions: Allergies Allergy/AdvReac Type Severity Reaction Status Date / Time No Known Drug Allergies Allergy Verified 04/16/22 20:11 - Social History Does the pt smoke?: Yes Smoking Status: Current every day smoker Does the pt drink ETOH?: No Does the pt have substance abuse?: No - Immunizations Immunizations are current?: No Immunizations: TDAP >10years/unknown PD ED PE NORMAL - Vitals Vital signs reviewed: Yes - General General: Alert and oriented X 3, No acute distress - Derm Derm: Warm and dry - Extremities Extremities: Other (R foot - 0.5 cm laceration to the plantar aspect, midfoot. No palpable foreign bodies. No visible foreign bodies. Neurovascular intact.) - Neuro Neuro: Alert and oriented X 3 - Psych Psych: Normal mood, Normal affect Results - Vitals Vitals: Vital Signs - 24 hr 04/16/22 20:07 Temperature 36.1 C L Heart Rate 79 Respiratory 16 Rate Blood Pressure 142/83 H O2 Saturation 98 Oxygen O2 Source Simple Mask - Rads (name of study) Right foot x-ray Radiology: Final report received, EMP read contemporaneously, See rad report (No acute bony abnormality. No foreign body.) PD MEDICAL DECISION MAKING - ED course Complexity details: reviewed results, re-evaluated patient, considered differential, d/w patient ED course: The wound was anesthetized with 1% lidocaine with epinephrine. The wound was explored with forceps. No palpable foreign bodies. No visible foreign body on x-ray. Wound care performed. Will continue wound care at home and have her follow-up with her doctor as needed. Patient counseled regarding signs and symptoms for which I believe and urgent re-evaluation would be necessary. Patient with good understanding of and agreement to plan and is comfortable going home at this time This document was made in part using voice recognition software. While efforts are made to proofread this document, sound alike and grammatical errors may occur. Departure - Departure Disposition: 01 Home, Self Care Clinical Impression: Laceration of plantar aspect of foot Qualifiers: Encounter type: initial encounter Laterality: right Qualified Code(s): S91.311A - Laceration without foreign body, right foot, initial encounter Condition: Good Instructions: ED Laceration Foot Follow-Up: Christi Mathew PA-C [Primary Care Provider] - As Needed Comments: This wound should heal without further issue. Please follow-up with your doctor as needed for further care. There is no evidence of foreign body on x-ray today. No evidence of foreign body on examination. Return if you notice redness, swelling or drainage from the wound.
[2022-04-16] MEDS ORDERED: LIDOCAINE-EPINEPH-TETRACAINE 3 ML SYRINGE TOP STA (21:11)
[2022-04-16] MEDS ORDERED: BACITRACIN ZINC OINT 1 PACKET TOP STA (21:28)
--- NOTE | 2022-04-16 21:32 | XRAY Report ---
PROCEDURE: Foot 3 View RT INDICATIONS: poss plantar FB TECHNIQUE: 3 views of the foot were acquired. COMPARISON: None. FINDINGS: Bones: No fractures or dislocations. There is moderate midfoot degeneration along the talonavicular articulation. No suspicious bony lesions. Soft tissues: No radiopaque foreign body identified. No tibiotalar joint effusion. Achilles tendon appears intact. IMPRESSION: 1. No fractures or radiopaque foreign body. Reviewed by: Tyrone Campa MD on 04/16/2022 9:31 PM PDT Approved by: Tyrone Campa MD on 04/16/2022 9:31 PM PDT Station ID: [id number]
[2022-04-16] MEDS ORDERED: TETANUS/DIPHTHERIA/PERTUSSIS 0.5 ML SYRINGE IM ONE (21:37)
[2022-04-16 21:50] VITALS: BP 140/80
== END 2022-04-16 21:49 | disposition home or self-care (01) ==
LOC: ED 19:59
DX: S91.311A Laceration without foreign body, right foot, initial encounter (principal); W22.8XXA Striking against or struck by other objects, initial encounter; Y92.000 Kitchen of unspecified non-institutional (private) residence as the place of occurrence of the external cause; F17.200 Nicotine dependence, unspecified, uncomplicated
CPT/HCPCS: 73630; 90471; 90715; 99282; 99283; A9270

== ENCOUNTER 2022-08-12 10:15 | Outpatient (CLI) | payer MEDICAID ==
--- NOTE | 2022-08-12 12:08 | XRAY Report ---
PROCEDURE: Knee 4 View BILAT INDICATIONS: BILAT KNEE PAIN TECHNIQUE: 4 views of the bilateral knees were acquired. COMPARISON: Knee radiographs 10/16/2020. FINDINGS: Bones: No acute fractures or dislocations. No suspicious bony lesions. Severe joint space narrowin g is seen in the medial femorotibial compartments bilaterally with marginal osteophyte formation. Mil d osseous irregularity of the left medial tibial plateau articular surface may represent a superimpos ed chronic osteochondral lesion. Marginal osteophyte formation is seen in the lateral compartments bi laterally. Joint space narrowing in the patellofemoral compartments is severe bilaterally, slightly w orse on the left, with marginal osteophyte formation and subchondral sclerosis. Soft tissues: No joint effusion. No suspicious soft tissue calcifications. IMPRESSION: 1.Progressive tricompartmental osteoarthrosis, which is severe in the medial and anterior compartment s bilaterally, slightly worse on the left. 2.Possible chronic osteochondral lesion at the left medial tibial plateau. Reviewed by: Jovani Thomas MD on 08/12/2022 12:07 PM PST Approved by: Jovani Thomas MD on 08/12/2022 12:07 PM PST Station ID: [id number]
== END 2022-08-12 23:59 | disposition home or self-care (01) ==
LOC: DI.WOS 10:15
PROVIDERS: ATTEND Physician Assistant Surgical
DX: M17.0 Bilateral primary osteoarthritis of knee (principal)

== ENCOUNTER 2024-12-11 10:05 | Observation (INO) ==
--- OUTSIDE RECORDS SUMMARY | 2024-12-11 10:42 | EXTERNAL MEDICAL SUMMARY RPT | Continuity of Care Document ---
Author Organization [facility] Address [address] [place] [id number] Phone Care Team Providers Care Instrument Repair Technician Name Role Phone Lisa Canales Unavailable Unavailable Allergies and Intolerances date description facility reaction severity 2024-11-14 08:22:43 [facility] (no reactio n) (no severity) 2024-11-14 08:22:43 [facility] (no reactio n) (no severity) Medications date description facility 2024-11-14 00:00 [facility] 2024-11-14 00:00 [facility] Problems date description facility 2024-11-04 12:19 [facility]specified [facility] 12:20 Unspecified asthma with (acute) [facility]ation [facility] 2024-11-05 00:02 Morbid (severe) obesity due to excess calories [facility] 2024-11-05 00:02 Essential (primary) hypertensio n [facility] 2024-11-05 00:02 Moderate persistent asthma with (acute) exacerbation [facility] 2024-11-05 00:02 Unspecified asthma with (acute) exacerbation [facility] 2024-11-08 09:35 Unspecified asthma with (acute) exacerbation [facility] 2024-11-08 15:28 Unspecified asthma with (acute) exacerbation [facility] 2024-11-13 22:13 Unspecified abdominal pain [facility] [employer] 2024-11-13 22:22 Unspecified abdominal pain [facility] 2024-11-13 22:28 Unspecified abdominal pain [facility] 2024-11-13 22:38 Unspecified abdominal pain [facility] 2024-11-14 00:00 Right upper quadrant abdominal pain [facility] 2024-11-14 00:00 Right flank pain [facility] 2024-11-15 09:02 Right upper quadrant pain [facility] 2024-11-15 09:02 Nausea with vomiting, unspecifi ed [facility] 2024-11-15 12:58 Right upper quadrant pain [facility] 2024-11-15 12:58 Nausea with vomiting, unspecifi ed [facility] 2024-11-16 15:06 Right upper quadrant pain [facility] 2024-11-16 15:06 Nausea with vomiting, unspecifi ed [facility] 2024-11-17 00:02 Right upper quadrant pain [facility] 2024-11-17 00:02 Nausea with vomiting, unspecifi ed [facility] 2024-11-23 11:04 Right upper quadrant pain [facility] 2024-11-24 08:38 Right upper quadrant pain [facility] 2024-11-25 09:04 Right upper quadrant pain [facility] 2024-11-25 09:04 Unspecified abdominal pain [facility] 2024-11-26 18:23 Acute pharyngitis, unspecified [facility] 2024-11-27 00:04 Acute pharyngitis, unspecified [facility] 2024-11-27 13:32 Acute pharyngitis, unspecified [facility] 2024-11-30 15:54 Right upper quadrant pain [facility] 2024-11-30 16:17 Hyperlipidemia, unspecified [facility] 2024-11-30 16:17 Right upper quadrant pain [facility] 2024-12-01 00:05 Hyperlipidemia, unspecified [facility] 2024-12-01 00:05 Right upper quadrant pain [facility] 2024-12-01 10:47 Hyperlipidemia, unspecified [facility] Procedures date description facility 2024-11-14 00:00 [facility] Results/Labs test date facility value unit notes Result panel 1 NUCLEATED RED BLOOD CELLS AUTO 2024-11-13 18:43 [facility] 0.0 /100wbc (missing) BASOPHILS # (AUTO) 2024-11-13 18[facility] 0.0 10 3/ul (missing) NRBC ABSOLUTE COUNT (AUTO) 2024-11-13 18:43 [facility] 0.00 x10 3/ul (missing) EOSINOPHILS # (AUTO) 2024-11-13 18:43 [facility] 0.5 10 3/ul (missing) MONOCYTES # (AUTO) 2024-11-13 18:43 [facility] 0.6 10 3/ul (missing) BILIRUBIN,TOTAL 2024-11-13 18:43 [facility] 0.6 mg /dl As of January 2023 testing method has changed, this may include reference ranges. CREATININE 2024-11-13 18:43 [facility] [employer] 0.8 mg/dl As of January 2023 testing method has changed, this may include reference ranges. ALBUMIN/GLOBULIN RATIO 2024-11-13 18:43 [facility] 1.5 (missing) (missing) CHLORIDE 2024-11-13 18:43 [facility] [employer] 100 mmol/l As of January 2023 testing method has changed, this may include reference ranges. MEAN PLATELET VOLUME 2024-11-13 18:43 [facility] 11.0 fl (missing) WHITE BLOOD COUNT 2024-11-13 18:43 [facility] 11.3 x10 3/ul (missing) RED CELL DISTRIBUTION WIDTH 2024-11-13 18:43 [facility] 12.8 % (missing) AST ASPARTATE AMINOTRANSFERASE 2024-11-13 18:43 [facility] [employer] 13 iu/l As of January 2023 testing method has changed, this may include reference ranges. SODIUM 2024-11-13 18:43 [facility] [facility] 138 mmol/l (missing) ALT ALANINE AMINOTRANSFERASE 2024-11-13 18:43 [facility] 14 iu/l As of January 2023 testing method has changed, this may include reference ranges. LIPASE 2024-11-13 18:43 [facility] [facility] 15 u/l As of January 2023 testing method has changed, this may include reference ranges. HGB - HEMOGLOBIN 2024-11-13 18:43 [facility] 15.0 g /dl (missing) BUN - BLOOD UREA NITROGEN 2024-11-13 18:43 [facility] 18 mg/dl As of Jan testing method has changed, this may include reference ranges. LYMPHOCYTES # (AUTO) 2024-11-13 18:43 [facility] 2.7 10 3/ul (missing) GLOBULIN 2024-11-13 18:43 [facility] 2.9 g/dl (missing) PLT - PLATELET COUNT 2024-11-13 18:43 [facility] 212 10 3/ul (missing) CARBON DIOXIDE - CO2 2024-11-13 18:43 [facility] 30 mmol/l As of January 2023 testing method has changed, this may include reference ranges. MEAN CORPUSCULAR HEMOGLOBIN 2024-11-13 18:43 [facility] 31.9 pg (missing) MEAN CORPUSCULAR HGB CONC 2024-11-13 18:43 [facility] 33.3 g/dl (missing) POTASSIUM 2024-11-13 18:43 [facility] 4.1 mmol/l As of January 2023 testing method has changed, this may include reference ranges. ALBUMIN 2024-11-13 18:43 [facility] 4.3 g/dl As of January 2023 testing method has changed, this may include reference ranges. RED BLOOD COUNT 2024-11-13 18:43 [facility] 4.70 10 6/ul (missing) HCT - HEMATOCRIT 2024-11-13 18:43 [facility] 45.0 % (missing) TOTAL PROTEIN 2024-11-13 18:43 [facility] 7.2 g/dl As of January 2023 testing method has changed, this may include reference ranges. NEUTROPHILS # (AUTO) 2024-11-13 18:43 [facility] 7.5 10 3/ul (missing) GFR - MDRD 2024-11-13 18:43 [facility] 76 (missin g) Social History date description facility 2024-11-14 00:00 Never smoked tobacco ([facility] Vital Signs date measurement value units 2024-11-14 00:00 BMI 51.6 kg/m2 2024-11-14 00:00 BP_diastolic 92 mmHg 2024-11-14 00:00 BP_systolic 168 mmHg 2024-11-14 00:00 heart_rate 66 /min 2024-11-14 00:00 height_metric 167.64 cm 2024-11-14 00:00 height_standard 66 in 2024-11-14 00:00 o2_saturation 97 % 2024-11-14 00:00 respiration_rate 18 /min 2024-11-14 00:00 temperature_metric 36.39 C 2024-11-14 00:00 temperature_standard 97.5 F 2024-11-14 00:00 weight_metric 145.14 kg 2024-11-14 00:00 weight_standard 319.98 lb
--- NOTE | 2024-12-11 12:44 | ED Physician Documentation ---
PD HPI HEADACHE Stated complaint Stated Complaint: NVD, CHILLS Chief complaint Chief Complaint: Neuro History obtained from History obtained from: Patient Additional information Additional information: Patient is a 49-year-old female presenting to the emergency department with vague and generalized abdominal pain. Symptoms have been going on for proximately 4 days. She notes she developed a headache on Friday it was manageable with ibuprofen but has been coming and going since then. She notes her headache today is significantly worse than it has been over the last 3 days. She has recurrent nausea or vomiting and episode of diarrhea that occurred this morning. She is recently 2 weeks postop from cholecystectomy. She has some generalized chills but no persistent right upper quadrant pain. She has no shortness of breath she has severe head pain behind both her eyes. She notes she Meds/Allgy Home Medications Ambulatory Orders Medication Instructions Recorded Confirmed cholecalciferol (vitamin D3) 50 50 mcg PO QDAY 4 12/12/24 mcg (2,000 unit) tablet fluoxetine 20 mg capsule (Prozac) 20 mg PO QPM 4 12/12/24 guanfacine 2 mg tablet,extended 2 mg PO QPM 06/15/24 0 12/12/24 release 24 hr multivitamin (Daily Multi-Vitamin 1 tab PO QDAY 12/12/24 tablet) acetaminophen 300 mg-codeine 30 mg 1 tab PO BID PRN pa in #30 tabs 08/24/24 12/12/24 tablet budesonide-formoterol HFA 80 2 puff inhalation BID ast hma 11/04/24 12/12/24 mcg-4.5 mcg/actuation aerosol maintenance 30 days #10. 2 grams inhaler (Symbicort) ondansetron 4 mg disintegrating 4 mg PO Q8H PRN nausea and 11/15/24 12/12/24 tablet vomiting #14 tabs ibuprofen 800 mg tablet 800 mg PO Q8H PRN pain 11/1612/12/24 albuterol sulfate 90 mcg/actuation 2 inh inhalation Q4 -6H PRN 11/18/24 12/12/24 aerosol inhaler shortness of breath or wheez ing #8.5 grams dextroamphetamine-amphetamine 30 60 mg (2 x 30 mg) PO QDAY #60 tabs 11/24/24 12/12/24 mg tablet furosemide 20 mg tablet 20 mg PO QAM PRN edema #30 t abs 11/30/24 12/12/24 zinc sulfate 50 mg zinc (220 mg) 50 mg PO DAILY 12/12/24 capsule (Zinc-220) Allergies Allergies Allergy/AdvReac Type Severity Reaction Status Date / Time duloxetine (From Cymbalta) Allergy Severe Rash Verified 12/11/24 10:33 gabapentin Allergy Severe Weakness Verified 12/11/24 10:33 PFS Active Problems All Active Problems (Updated 12/12/24 @ 11:45 by Pat Ahn PA-C) Hypertensive emergency (Acute) Migraine (Acute) Headache behind the eyes (Acute) Weight gain (Acute) Acalculous cholecystitis (Acute) Sore throat (Acute) Abdominal pain (Acute) Fatty infiltration of liver (Acute) Nausea & vomiting (Acute) Acute right flank pain (Acute) HTN (hypertension) (Acute) Asthma with exacerbation (Acute) Depression (Acute) ADD (attention deficit disorder) (Acute) Vitamin D deficiency (Acute) Apnea, sleep (Acute) Hyperglycemia (Acute) Fibromyalgia (Acute) Osteoarthritis of both knees (Acute) Lumbar radiculopathy (Acute) Asthma, mild intermittent (Acute) Morbid obesity (Acute) Insufficiency, adrenal (Acute) Foot pain, right (Acute) Low back pain, unspecified (Acute) Urge incontinence (Acute) Colon cancer screening (Acute) Cervical cancer screening (Acute) Hyperlipidemia (Acute) Elevated BP without diagnosis of hypertension (Acute) Reactive airway disease (Acute) Social History Social History (Updated 11/30/24 @ 14:29 by Maribel Chen) Smoking Status: Former smoker If you are a former smoker, when did you quit? (Date/Year): 2018 Number of Years Smoked: 20 How many cigarettes a day do you smoke? (20 cigarettes=1 Pk): 10 Do you dip or chew tobacco?: No Do you vape?: No Patient requests smoking cessation consult: No Initiate information on smoking cessation: No Living Condition: Alone Support Person: Yes Relationship: Parent Physical Activity: None Level: Independent Do you feel safe in your home environment?: Yes Suffered physical, verbal, emotional, or financial abuse?: No ETOH Use: None Substance Use: denies use Occupation: Works at pre-school [employer] Patient has POLST: No Exam Exam Vital Signs: Vital Signs x48h Pulse Resp BP Pulse Ox 12/11/24 19:45 71 17 200/110 H 99 12/11/24 19:35 60 18 191/122 H 100 12/11/24 19:30 56 L 20 207/98 H 98 12/11/24 19:25 68 18 198/90 H 95 12/11/24 19:20 63 16 193/106 H 96 12/11/24 18:37 75 192/121 H 98 12/11/24 15:23 77 18 151/77 H 99 Constitutional normal general appearance HENMT normocephalic, head/scalp atraumatic and hearing grossly normal bilaterally Eyes PERRL, EOMs intact bilaterally and conjunctivae normal Neck/C-Spine visual inspection normal Lymph no lymphadenopathy noted Chest inspection of chest normal Respiratory breath sounds equal bilaterally, normal respiratory effort and clear to auscultation bilaterally Cardiovascular normal heart rate noted, regular rhythm noted, no gallop and no rub Gastrointestinal abdomen normal to inspection and abdomen soft to palpation old surgical scars present no signs of redness swelling irritation or bleeding. Extremities No lower leg swelling Skin no rash Results Vitals Vitals: Vital Signs - 24 hr 12/11/24 12:21 12/11/24 13:51 12/11/24 14:21 Temperature 37.2 C Temperature Source Temporal Artery Scan Pulse Rate 56 L Respiratory Rate 16 Blood Pressure 143/81 H O2 Saturation 99 Oxygen Delivery Method O2 Source Room air Pain Intensity 10 9 12/11/24 15:23 12/11/24 17:29 12/11/24 17:55 Temperature Temperature Source Pulse Rate 77 Respiratory Rate 18 Blood Pressure 151/77 H O2 Saturation 99 Oxygen Delivery Method O2 Source Room air Pain Intensity 9 10 8 12/11/24 18:37 12/11/24 18:54 12/11/24 19:20 Temperature Temperature Source Pulse Rate 75 63 Respiratory Rate 16 Blood Pressure 192/121 H 193/106 H O2 Saturation 98 96 Oxygen Delivery Method O2 Source Room air Room air Pain Intensity 9 8 12/11/24 19:25 12/11/24 19:30 12/11/24 19:35 Temperature Temperature Source Pulse Rate 68 56 L 60 Respiratory Rate 18 20 18 Blood Pressure 198/90 H 207/98 H 191/122 H O2 Saturation 95 98 100 Oxygen Delivery Method O2 Source Room air Room air Room air Pain Intensity 12/11/24 19:45 12/11/24 19:45 Temperature Temperature Source Pulse Rate 71 Respiratory Rate 17 Blood Pressure 200/110 H O2 Saturation 99 Oxygen Delivery Method Room Air O2 Source Room air Pain Intensity Oxygen O2 Source Room air Labs Labs: Laboratory Tests 12/11/24 12:45 WBC 10.4 RBC 4.86 Hgb 15.2 Hct 45.4 MCV 93.4 MCH 31.3 H MCHC 33.5 RDW 12.1 Plt Count 227 MPV 11.7 H Neut # (Auto) 8.1 H Lymph # (Auto) 1.4 L [place] # (Auto) 0.7 Eos # (Auto) 0.0 Baso # (Auto) 0.1 Absolute Nucleated RBC 0.00 Nucleated RBC % 0.0 Sodium 134 L Potassium 3.4 L Chloride 99 L Carbon Dioxide 23 Anion Gap 12.0 BUN 20 Creatinine 0.8 Estimated GFR (MDRD) 76 L Glucose 115 H Calcium 9.4 Total Bilirubin 1.2 H AST 10 ALT 11 Alkaline Phosphatase 67 Total Protein 6.8 Albumin 4.3 Globulin 2.5 Albumin/Globulin Ratio 1.7 Lipase < 10 L Beta HCG, Quant 2.6 PD Medical Decision Making ED course Complexity details: reviewed old records and reviewed results ED course: Patient is a 49-year-old female presenting to the emergency department with severe headache nausea and vomiting diarrhea that been going on since Friday. Symptoms began with headache recurrent nausea and vomiting since then. She is 2 weeks postop from recent cholecystectomy after recent acalculous cholecystitis. Patient has significant headaches nausea vomiting. Her abdomen is tender in the epigastric region but denies similar pain to her gallbladder spasms. She has no fevers chills no neck pain no vision changes she has photophobia and phonophobia associated with her symptoms. Labs obtained here in the emergency department show no significant leukocytosis CMP shows some mild hypokalemia and hyponatremia most likely secondary to nausea vomiting test is negative UA shows no signs of UTI. CT head: 1.No acute intracranial pathology. 2.Suspected chronic arachnoid cyst along the superior right frontal convexity. CT abdominal pain: 1.Status post cholecystectomy. Mild edema or trace fluid is seen in the gallbladder fossa without a clearly defined drainable abscess. No biliary ductal dilatation. 2.Soft tissue lesion adjacent to the T9 vertebral body is most suspicious for a peripheral nerve sheath tumor although other benign or malignant soft tissue masses are not excluded. Patient continues have severe head pain here in the ED she had some mild improvement with Dilaudid. She was given a larger dose of Dilaudid but no improvement with Toradol Reglan Benadryl or fluids. Did discuss with [facility] neurosurgeon Dr. Diaz who is recommending outpatient follow-up for incidental arachnoid cyst along the superior right frontal convexity. Patient's previous soft tissue lesion at T9 is a known cyst and she is following up outpatient for this as well Patient continues to report severe head pain blood pressure increasing here in the ED with blood pressure readings in the 190s. She is on Lasix as needed but no other antihypertensives at this time. She was given a dose of IV hydralazine with no improvement in blood pressure with progressively increasing hypertension here in the ED in the 200s which I feel is probably increasing her pain and headache symptoms. Discussed with patient she does not feel safe to go home I cannot have her safely ambulate at bedside at this time. I feel patient is not safe for going home at this time.Discussed case with hospitalist Douglas MARX who is agreeable with admission at this time. Discharge Plan Discharge Patient Disposition: 66 [facility] DC/Xfer Condition: Good Clinical Impression: Migraine, Hypertensive emergency Interventions: ED Admission Assessment Last Done: 12/11/24 20:45
[2024-12-11 12:50] LABS: BASOPHILS # (AUTO) 0.1 10^3/uL (0.0-0.1); BASOPHILS % (AUTO) 0.5 %; EOSINOPHILS % (AUTO) 0.1 %; HCT - HEMATOCRIT 45.4 % (37.0-47.0); HGB - HEMOGLOBIN 15.2 g/dL (12.0-16.0); LYMPHOCYTES # (AUTO) 1.4 10^3/uL (1.5-3.5); LYMPHOCYTES % (AUTO) 13.5 %; MEAN CORPUSCULAR HEMOGLOBIN 31.3 pg (27.0-31.0); MEAN CORPUSCULAR HGB CONC 33.5 g/dL (32.0-36.0); MEAN CORPUSCULAR VOLUME 93.4 fL (81.0-99.0); MEAN PLATELET VOLUME 11.7 fL (7.9-10.8); MONOCYTES # (AUTO) 0.7 10^3/uL (0.0-1.0); MONOCYTES % (AUTO) 7.1 %; NEUTROPHILS # (AUTO) 8.1 10^3/uL (1.5-6.6); NEUTROPHILS % (AUTO) 78.4 %; PLT - PLATELET COUNT 227 10^3/uL (130-450); RED BLOOD COUNT 4.86 10^6/uL (4.20-5.40); RED CELL DISTRIBUTION WIDTH 12.1 % (12.0-15.0); WHITE BLOOD COUNT 10.4 x10^3/uL (4.8-10.8)
[2024-12-11] MEDS: ONDANSETRON 4 MG/2 ML VIAL IVP STA (12:51)
[2024-12-11 13:04] LABS: ALBUMIN 4.3 g/dL (3.2-5.5); ALBUMIN/GLOBULIN RATIO 1.7 (1.0-2.2); ALKALINE PHOSPHATASE 67 IU/L (42-121); ALT ALANINE AMINOTRANSFERASE 11 IU/L (10-60); AST ASPARTATE AMINOTRANSFERASE 10 IU/L (10-42); BILIRUBIN,TOTAL 1.2 mg/dL (0.2-1.0); BUN - BLOOD UREA NITROGEN 20 mg/dL (6-20); CALCIUM 9.4 mg/dL (8.5-10.3); CARBON DIOXIDE - CO2 23 mmol/L (21-32); CHLORIDE 99 mmol/L (101-111); CREATININE 0.8 mg/dL (0.6-1.3); GFR - MDRD 76 (>89); GLUCOSE 115 mg/dL (74-104); POTASSIUM 3.4 mmol/L (3.5-4.5); SODIUM 134 mmol/L (135-145); TOTAL PROTEIN 6.8 g/dL (6.4-8.9)
[2024-12-11 13:05] LABS: LIPASE < 10 U/L (11-82)
--- NOTE | 2024-12-11 13:23 | CT Report ---
PROCEDURE: CT Head WO INDICATIONS: headache severe, n/v, no previous hx TECHNIQUE: CT of the head was performed, without intravenous contrast. Reformats: Coronal and sagittal. For radiation dose reduction, the following was used: automated exposure control, adjustment of mA and/or kV according to patient size. COMPARISON: None. FINDINGS: Image quality: Diagnostic. CSF spaces: Basal cisterns are patent. Suspected arachnoid cyst at the superior right frontal convexity. No extra-axial hemorrhage. Ventricles are normal in size and shape. Brain: No midline shift. No intracranial mass effect or hemorrhage. Martinez- white matter interface is normal. No significant periventricular white matter hypoattenuation or volume loss. Skull and face: Calvarium and visualized facial bones are intact, without suspicious lesions. Sinuses: Visualized sinuses and mastoids are clear. IMPRESSION: 1.No acute intracranial pathology. 2.Suspected chronic arachnoid cyst along the superior right frontal convexity. Reviewed by: Jovani Thomas MD on 12/11/2024 12:22 PM ARIANNE Approved by: Jovani Thomas MD on 12/11/2024 12:22 PM NMSARA Station ID: [id number]
[2024-12-11] MEDS: METOCLOPRAMIDE 10 MG/2 ML VIAL IVP STA (13:50)
[2024-12-11] MEDS: diphenhydrAMINE INJ 50 MG/ML VIAL IVP STA (13:50)
[2024-12-11] MEDS: SODIUM CHLORIDE 0.9% 1,000 ML IV STA (13:50)
[2024-12-11] MEDS: KETOROLAC 15 MG/ML VIAL IM STA (13:51)
[2024-12-11 14:11] LABS: BILIRUBIN,URINE SMALL (NEGATIVE); GLUCOSE, URINE (UA) NEGATIVE (NEGATIVE); KETONES,URINE (UA) >=80 mg/dL (NEGATIVE); LEUKOCYTE ESTERASE, URINE NEGATIVE (NEGATIVE); NITRITE,URINE NEGATIVE (NEGATIVE); OCCULT BLOOD,URINE NEGATIVE (NEGATIVE); PROTEIN,URINE TRACE mg/dL (NEGATIVE); UROBILINOGEN,URINE 1 (NORMAL) E.U./dL (NORMAL)
[2024-12-11 14:12] LABS: CLARITY,URINE CLEAR (CLEAR)
[2024-12-11] MEDS ORDERED: iohexoL-300 100 ML VIAL ONE (15:31)
[2024-12-11] MEDS: DROPERIDOL 5 MG/2 ML VIAL IVP STA (16:06)
--- NOTE | 2024-12-11 16:29 | CT Report ---
PROCEDURE: CT Abdomen/Pelvis W INDICATIONS: abdominal pain post op surgery cholecystectomy CONTRAST: omni 300, 100 TECHNIQUE: After the administration of intravenous contrast, a CT scan of the abdomen and pelvis was performed. Images were recorded and evaluated at appropriate window settings. Reformats: coronal and sagittal. For radiation dose reduction, the following was used: automated exposure control, adjustment of mA and/or kV according to patient size. COMPARISON: CT abdomen/pelvis 11/13/2024. FINDINGS: Image quality: Diagnostic. Lower chest: Soft tissue lesion is seen in the right paraspinal region adjacent to the T9 vertebral body. In retrospect, this lesion does not appear significantly changed when compared to the prior CT. Liver: No solid mass. Coarse calcifications in the liver are likely secondary to prior granulomatous disease. Gallbladder: Status post cholecystectomy. Trace fluid in the gallbladder fossa without a well-defined drainable abscess. Biliary tree: No intrahepatic or extrahepatic dilation, accounting for age. Spleen: No splenomegaly. Pancreas: No pancreatic ductal dilation. Adrenals: No adrenal nodule. Kidneys and ureters: No hydronephrosis. No renal cystic lesion which requires follow up. No solid mass. Stomach, bowel and peritoneum: No gastric or small bowel dilation. No abnormal wall thickening. No pathologic free fluid. Scattered diverticula in the colon without signs of acute diverticulitis. Normal appendix. Lymph nodes: No central or retroperitoneal adenopathy. Vessels: No infrarenal aortic aneurysm. Patent portal vein. PELVIS Reproductive organs: Anteverted uterus. No adnexal mass. Bladder: No abnormal wall thickening. Pelvic lymph nodes: No pelvic adenopathy by size criteria. Bones: No aggressive osseous abnormality. Bilateral spondylolysis of L5 with grade 1 anterolisthesis of L5 on S1. Other: Small fat-containing right inguinal hernia. IMPRESSION: 1.Status post cholecystectomy. Mild edema or trace fluid is seen in the gallbladder fossa without a clearly defined drainable abscess. No biliary ductal dilatation. 2.Soft tissue lesion adjacent to the T9 vertebral body is most suspicious for a peripheral nerve sheath tumor although other benign or malignant soft tissue masses are not excluded. Reviewed by: Jovani Thomas MD on 12/11/2024 3:27 PM ARIANNE Approved by: Jovani Thomas MD on 12/11/2024 3:27 PM AKSARA Station ID: [id number]
[2024-12-11] MEDS: iohexoL-300 100 ML VIAL IVP ONE (17:06)
[2024-12-11] MEDS: HYDROmorphone 0.5 MG/0.5 ML SYRINGE IVP STA ×2 (17:29→18:54)
[2024-12-11] MEDS: hydrALAZINE INJ 20 MG/ML VIAL IVP STA (19:16)
--- NOTE | 2024-12-11 20:34 | HISTORY & PHYSICAL EXAMINATION ---
Chief Complaint Chief Complaint Chief Complaint: Headache History of Present Illness Admitted From Admitted From:: Home History Obtained From History obtained from: Patient interview History of Present Illness HPI Comment/Other: 49-year-old female PMH asthma, ADD, sleep apnea, fibromyalgia, recent cholecystectomy who presents to the hospital with headache. Is progressively gotten worse, now causing severe nausea and light sensitivity. She reports the pain is throbbing, just behind her eyes. She states she has not had any of her meds in the past few days, including guanfacine and Prozac In the ER, she was given multiple medications to treat multiple different etiologies of her headache. She received IV Benadryl, droperidol, hydromorphone x 2, Toradol, Reglan, Zofran all without effect. Her blood pressure has climbed steadily since presentation, and she was given a one-time dose of hydralazine. Lab work significant only for a potassium of 3.4. CT head was performed which showed no acute cranial pathology, but it did show a suspected chronic arachnoid cyst. Neurology was consulted, and they report that this is not causing her symptoms. There is also a CT abdomen/pelvis which did not show any acute findings. Hospitalist was contacted for observation for intractable headache as well as no evolving hypertensive emergency Meds/Allgy Home Medications Ambulatory Orders Medication Instructions Recorded Confirmed cholecalciferol (vitamin D3) 50 50 mcg PO QDAY 4 11/30/24 mcg (2,000 unit) tablet fluoxetine 20 mg capsule (Prozac) 20 mg PO QDAY 11/30/24 guanfacine 2 mg tablet,extended 2 mg PO QPM 06/15/24 0 11/30/24 release 24 hr multivitamin (Daily Multi-Vitamin 1 tab PO QDAY 11/30/24 tablet) acetaminophen 300 mg-codeine 30 mg 1 tab PO BID PRN pa in #30 tabs 08/24/24 11/30/24 tablet budesonide-formoterol HFA 80 2 puff inhalation BID ast hma 11/04/24 11/30/24 mcg-4.5 mcg/actuation aerosol maintenance 30 days #10. 2 grams inhaler (Symbicort) ondansetron 4 mg disintegrating 4 mg PO Q8H PRN nausea and 11/15/24 11/30/24 tablet vomiting #14 tabs ibuprofen 800 mg tablet 800 mg PO Q8H 11/16/2411/30 albuterol sulfate 90 mcg/actuation 2 inh inhalation Q4 -6H PRN 11/18/24 11/30/24 aerosol inhaler shortness of breath or wheez ing #8.5 grams dextroamphetamine-amphetamine 30 60 mg (2 x 30 mg) PO QDAY #60 tabs 11/24/24 11/30/24 mg tablet furosemide 20 mg tablet 20 mg PO QAM PRN edema #30 t abs 11/30/24 11/30/24 Allergies Allergies Allergy/AdvReac Type Severity Reaction Status Date / Time duloxetine (From Cymbalta) Allergy Severe Rash Verified 12/11/24 10:33 gabapentin Allergy Severe Weakness Verified 12/11/24 10:33 PFSH Active Problems All Active Problems (Updated 12/11/24 @ 20:22 by Douglas Poole, MARIO) Headache behind the eyes (Acute) Weight gain (Acute) Acalculous cholecystitis (Acute) Sore throat (Acute) Abdominal pain (Acute) Fatty infiltration of liver (Acute) Nausea & vomiting (Acute) Acute right flank pain (Acute) HTN (hypertension) (Acute) Asthma with exacerbation (Acute) Depression (Acute) ADD (attention deficit disorder) (Acute) Vitamin D deficiency (Acute) Apnea, sleep (Acute) Hyperglycemia (Acute) Fibromyalgia (Acute) Osteoarthritis of both knees (Acute) Lumbar radiculopathy (Acute) Asthma, mild intermittent (Acute) Morbid obesity (Acute) Insufficiency, adrenal (Acute) Foot pain, right (Acute) Low back pain, unspecified (Acute) Urge incontinence (Acute) Colon cancer screening (Acute) Cervical cancer screening (Acute) Hyperlipidemia (Acute) Elevated BP without diagnosis of hypertension (Acute) Reactive airway disease (Acute) Social History Social History (Updated 11/30/24 @ 14:29 by Maribel Chen) Smoking Status: Former smoker If you are a former smoker, when did you quit? (Date/Year): 2018 Number of Years Smoked: 20 How many cigarettes a day do you smoke? (20 cigarettes=1 Pk): 10 Do you dip or chew tobacco?: No Patient requests smoking cessation consult: No Initiate information on smoking cessation: No Living Condition: Alone Support Person: Yes Relationship: Physical Activity: None Level: Independent Do you feel safe in your home environment?: Yes Suffered physical, verbal, emotional, or financial abuse?: No ETOH Use: None Substance Use: denies use Occupation: Works at pre-school [employer] Patient has POLST: No Review of Systems Status of ROS: 10 or more systems reviewed and unremarkable except as noted in history and below Constitutional Denies: Fever or Chills Cardiovascular Denies: Irregular heart rate, chest pain, palpitations or shortness of breath with exertion Respiratory Denies: Shortness of breath or Cough Gastrointestinal Denies: Abdominal pain or Abdominal distention Neurological Reports: Headache Exam Exam Vital Signs: Vital Signs x48h Temp Pulse Pulse Resp BP BP Pulse Ox 12/11/24 21:39 36.4 C L 63 16 116/73 97 12/11/24 20:40 54 L 17 119/61 99 12/11/24 19:45 71 17 200/110 H 99 12/11/24 19:35 60 18 191/122 H 100 12/11/24 19:30 56 L 20 207/98 H 98 12/11/24 19:25 68 18 198/90 H 95 12/11/24 19:20 63 16 193/106 H 96 12/11/24 18:37 75 192/121 H 98 12/11/24 15:23 77 18 151/77 H 99 Constitutional Obese middle-aged female, shielding eyes from light HENMT normocephalic and head/scalp atraumatic Eyes PERRL Neck/C-Spine visual inspection normal Lymph no lymphadenopathy noted Chest inspection of chest normal Respiratory breath sounds equal bilaterally Cardiovascular normal heart rate noted and regular rhythm noted Gastrointestinal abdomen normal to inspection and abdomen soft to palpation Extremities normal to inspection Trace edema BLE Neurology GCS 15 Shielding eyes from light Psychiatry oriented x3 Skin skin color normal Conclusion/Plan Problem List (1) Headache behind the eyes: Plan: This is most likely because she has not had her guanfacine and Prozac for 5 days I have ordered those meds restarted Ordered as needed Fioricet (2) HTN (hypertension): Plan: BP 207/98 at time of my interview, with headache, which is criteria for hypertensive emergency Likely secondary to withdrawal from guanfacine and Prozac I have ordered those meds restarted Nursing reports difficulty in obtaining guanfacine, ordered clonidine for now Qualifiers: Hypertension type: primary hypertension Qualified Code(s): I10 - Essential (primary) hypertension Plan Placed in observation Full code She names her son is her surrogate decision-maker Lab Results Lab results reviewed: Yes 12/11/24 12:45 12/11/24 12:45
[2024-12-11] MEDS: GUANFACINE 2 MG PO SCH (20:39)
[2024-12-11] MEDS ORDERED: SODIUM CHLORIDE FLUSH 0.9% 10 ML SYRINGE IVP PRN (20:40)
[2024-12-11] MEDS: DEXAMETHASONE 10 MG/ML VIAL IVP ONE (21:37)
[2024-12-11] MEDS: cloNIDine 0.1 MG TABLET PO SCH (21:37)
[2024-12-11] MEDS: BUTALB/ACETAM/CAFF 50/325/40MG TABLET PO PRN (21:37)
[2024-12-11] MEDS: SODIUM CHLORIDE FLUSH 0.9% 10 ML SYRINGE IVP SCH (21:38)
[2024-12-11] MEDS: HYDROmorphone 0.5 MG/0.5 ML SYRINGE IVP PRN (22:43)
[2024-12-12] MEDS: ONDANSETRON ODT 4 MG TABLET TL PRN (05:20)
[2024-12-12] MEDS: oxyCODONE 5 MG TABLET PO PRN (05:20)
[2024-12-12] MEDS ORDERED: FLUoxetine 10 MG CAPSULE PO SCH ×2 (09:00→21:00)
--- NOTE | 2024-12-12 09:38 | PHARMACY PROGRESS NOTE ---
Best Possible Medication History Admit Date and Time: 12/11/242019 Home Medications Medication Instructions Recorded Confirmed Type cholecalciferol (vitamin D3) 50 50 mcg PO QDAY 4 12/12/24 History mcg (2,000 unit) tablet fluoxetine 20 mg capsule (Prozac) 20 mg PO QPM 4 12/12/24 History guanfacine 2 mg tablet,extended 2 mg PO QPM 06/15/24 0 12/12/24 History release 24 hr multivitamin (Daily Multi-Vitamin 1 tab PO QDAY 12/12/24 History tablet) acetaminophen 300 mg-codeine 30 mg 1 tab PO BID PRN pa in #30 tabs 08/24/24 12/12/24 Rx tablet budesonide-formoterol HFA 80 2 puff inhalation BID ast hma 11/04/24 12/12/24 Rx mcg-4.5 mcg/actuation aerosol maintenance 30 days #10. 2 grams inhaler (Symbicort) ondansetron 4 mg disintegrating 4 mg PO Q8H PRN nausea and 11/15/24 12/12/24 Rx tablet vomiting #14 tabs ibuprofen 800 mg tablet 800 mg PO Q8H PRN pain 11/1612/12/24 History albuterol sulfate 90 mcg/actuation 2 inh inhalation Q4 -6H PRN 11/18/24 12/12/24 Rx aerosol inhaler shortness of breath or wheez ing #8.5 grams dextroamphetamine-amphetamine 30 60 mg (2 x 30 mg) PO QDAY #60 tabs 11/24/24 12/12/24 Rx mg tablet furosemide 20 mg tablet 20 mg PO QAM PRN edema #30 t abs 11/30/24 12/12/24 Rx zinc sulfate 50 mg zinc (220 mg) 50 mg PO DAILY 12/12/24 History capsule (Zinc-220) Processed by: Pharmacy Medications reviewed in ED?: No Medication History completed: Yes Patient Interview: Completed Secondary Source(s): Pharmacy records and Insurance records [facility] Statement: As the person ultimately responsible for medication therapy, providers are able to order a medication from an existing home medication list in [facility] via the "Reconcile Routine" prior to Confirmation of that medication by clinical support specialist. Such practice is discouraged except when the physician, in their clinical judgment, deems that a medical need exists for a medication without regard to previous use.
[2024-12-12] MEDS: PROCHLORPERAZINE 10 MG/2 ML VIAL IVP PRN (09:45)
[2024-12-12 09:53] VITALS: O2SAT 96
[2024-12-12] MEDS: METOCLOPRAMIDE 10 MG/2 ML VIAL IVP STA (13:16)
[2024-12-12] MEDS: diphenhydrAMINE INJ 50 MG/ML VIAL IVP STA (13:16)
[2024-12-12] MEDS: KETOROLAC 15 MG/ML VIAL IVP STA (13:17)
[2024-12-12] MEDS: cloNIDine 0.1 MG TABLET PO SCH (13:25)
[2024-12-12] MEDS: DEXAMETHASONE 10 MG/ML VIAL IVP ONE (13:25)
[2024-12-12 16:36] VITALS: TEMP 97.9
[2024-12-12 18:21] VITALS: BP 119/61
[2024-12-12] MEDS: PROCHLORPERAZINE 5 MG TABLET PO STA (18:33)
[2024-12-12] MEDS: IBUPROFEN 600 MG TABLET PO STA (18:33)
[2024-12-12] MEDS: BUTALB/ACETAM/CAFF 50/325/40MG TABLET PO STA (18:34)
[2024-12-12] MEDS: diphenhydrAMINE 25 MG CAPSULE PO STA (18:34)
--- NOTE | 2024-12-12 18:45 | Discharge Summary ---
Discharge Summary Admit Date: 12/11/24 Discharge Date: 12/12/24 Discharging Provider: Douglas Poole NP Primary Care Provider: Christi Mathew Code Status: Attempt Resuscitation DIAGNOSES Admission Diagnoses: Headache behind the eyes Hypertensive emergency Discharge Diagnoses with Status of Each Condition: Headache behind the eyeslikely migraine Hypertensive emergencyresolved HPI History of Present Illness: 49-year-old female PMH asthma, ADD, sleep apnea, fibromyalgia, recent cholecystectomy who presents to the hospital with headache. Is progressively gotten worse, now causing severe nausea and light sensitivity. She reports the pain is throbbing, just behind her eyes. She states she has not had any of her meds in the past few days, including guanfacine and Prozac In the ER, she was given multiple medications to treat multiple different etiologies of her headache. She received IV Benadryl, droperidol, hydromorphone x 2, Toradol, Reglan, Zofran all without effect. Her blood pressure has climbed steadily since presentation, and she was given a one-time dose of hydralazine. Lab work significant only for a potassium of 3.4. CT head was performed which showed no acute cranial pathology, but it did show a suspected chronic arachnoid cyst. Neurology was consulted, and they report that this is not causing her symptoms. There is also a CT abdomen/pelvis which did not show any acute findings. Hospitalist was contacted for observation for intractable headache as well as no evolving hypertensive emergency HOSPITAL COURSE Hospital Course: She was placed in observation and given multiple doses of steroid, NSAID, antiemetics, narcotic and nonnarcotic analgesics. This morning, she reported dizziness. Her headache improved somewhat, and then she was able to sleep today when her family brought in her home CPAP. She worked with physical therapy, who performed Levy maneuvers on her which improved some dizziness. She is being discharged home with a short course of steroids, antibiotics, Fioricet and has been encouraged to follow-up with your primary care provider. She may benefit from medications to prevent migraines ALLERGIES Allergies Allergy/AdvReac Type Severity Reaction Status Date / Time duloxetine (From Cymbalta) Allergy Severe Rash Verified 12/11/24 10:33 gabapentin Allergy Severe Weakness Verified 12/11/24 10:33 MEDICATIONS Ambulatory Orders Medication Instructions Recorded Confirmed cholecalciferol (vitamin D3) 50 50 mcg PO QDAY 4 12/12/24 mcg (2,000 unit) tablet fluoxetine 20 mg capsule (Prozac) 20 mg PO QPM 4 12/12/24 guanfacine 2 mg tablet,extended 2 mg PO QPM 06/15/24 0 12/12/24 release 24 hr multivitamin (Daily Multi-Vitamin 1 tab PO QDAY 12/12/24 tablet) acetaminophen 300 mg-codeine 30 mg 1 tab PO BID PRN pa in #30 tabs 08/24/24 12/12/24 tablet budesonide-formoterol HFA 80 2 puff inhalation BID ast hma 11/04/24 12/12/24 mcg-4.5 mcg/actuation aerosol maintenance 30 days #10. 2 grams inhaler (Symbicort) ondansetron 4 mg disintegrating 4 mg PO Q8H PRN nausea and 11/15/24 12/12/24 tablet vomiting #14 tabs ibuprofen 800 mg tablet 800 mg PO Q8H PRN pain 11/1612/12/24 albuterol sulfate 90 mcg/actuation 2 inh inhalation Q4 -6H PRN 11/18/24 12/12/24 aerosol inhaler shortness of breath or wheez ing #8.5 grams dextroamphetamine-amphetamine 30 60 mg (2 x 30 mg) PO QDAY #60 tabs 11/24/24 12/12/24 mg tablet furosemide 20 mg tablet 20 mg PO QAM PRN edema #30 t abs 11/30/24 12/12/24 syovtirwlr-dnwhqfedkfqml-qsemdbyt 1 tab PO Q4HR PRN He adache #20 tabs 12/12/24 50 mg-325 mg-40 mg tablet dexamethasone 4 mg tablet 4 mg PO BID 10 days #20 tabs 12/12/24 metoclopramide HCl 10 mg tablet 10 mg PO QAC PRN nause a and 12/12/24 (Reglan) vomiting #90 tabs prochlorperazine maleate 10 mg 10 mg PO BID PRN nausea and 12/12/24 tablet (Compazine) vomiting #30 tabs zinc sulfate 50 mg zinc (220 mg) 50 mg PO DAILY 12/12/24 capsule (Zinc-220) PHYSICAL EXAM AT DISCHARGE Vital Signs: Vital Signs x48h Temp Pulse Resp BP Pulse Ox 12/12/24 18:20 119/61 12/12/24 16:35 36.6 C 63 18 131/70 H 96 12/12/24 11:15 60 16 149/91 H 12/12/24 11:15 57 L 16 132/76 H General Appearance: positive No acute distress and Alert Eyes Bilateral: positive Normal inspection and PERRL ENT: positive ENT inspection nml Neck: positive Nml inspection Respiratory: positive Chest non-tender Cardiovascular: positive Regular rate & rhythm Peripheral Pulses: positive 2+ Abdomen: positive Non-tender Rectal: positive Non-tender Extremities: positive Non-tender Neurologic/Psychiatric: positive Oriented x3 LABS 12/11/24 12:45 12/11/24 12:45 FOLLOW UP Follow Up: With PCP TIME SPENT Time Spent in Discharge (Minutes): 35 Discharge Plan Discharge Patient Disposition: 01 Home, Self Care Condition: Good Prescriptions: New cuczqjmyes-tcyiztyoyjbbo-afhn 50-325-40 mg Tablet 1 tab PO Q4HR PRN (Reason: Headache) Qty: 20 0RF dexamethasone 4 mg tablet 4 mg PO BID 10 Days Qty: 20 0RF metoclopramide HCl [Reglan] 10 mg tablet 10 mg PO QAC PRN (Reason: nausea and vomiting) Qty: 90 0RF Rx Instructions: administer 30 minutes before meals prochlorperazine maleate [Compazine] 10 mg tablet 10 mg PO BID PRN (Reason: nausea and vomiting) Qty: 30 0RF Continued albuterol sulfate 90 mcg/actuation HFA aerosol inhaler 2 inh inhalation Q4-6H PRN (Reason: shortness of breath or wheezing) Qty: 8.5 11RF dextroamphetamine-amphetamine 30 mg tablet 60 mg PO QDAY Qty: 60 0RF Rx Instructions: for ADD ondansetron 4 mg tablet,disintegrating 4 mg PO Q8H PRN (Reason: nausea and vomiting) Qty: 14 0RF zinc sulfate [Zinc-220] 50 mg zinc (220 mg) capsule 50 mg PO DAILY guanfacine 2 mg tablet extended release 24 hr 2 mg PO QPM fluoxetine [Prozac] 20 mg capsule 20 mg PO QPM multivitamin [Daily Multi-Vitamin] Tablet 1 tab PO QDAY cholecalciferol (vitamin D3) 50 mcg (2,000 unit) tablet 50 mcg PO QDAY acetaminophen-codeine 300-30 mg tablet 1 tab PO BID PRN (Reason: pain) Qty: 30 2RF furosemide 20 mg tablet 20 mg PO QAM PRN (Reason: edema) Qty: 30 3RF Rx Instructions: swelling budesonide-formoterol [Symbicort] 80-4.5 mcg/actuation HFA aerosol inhaler 2 puff inhalation BID 30 Days Qty: 10.2 2RF ibuprofen 800 mg tablet 800 mg PO Q8H PRN (Reason: pain) Diet: Regular Health Concerns: You came in with a headache that just would not go away and was causing severe nausea. You were held overnight while we gave you a bunch of medicine to help you rest and sleep of your headache. I am discharging you home with a prescription for more of the same meds. Please take as prescribed when needed. I would like for you to follow-up with your primary care provider for further management of this. You may benefit from being started on medications to prevent migraines. Print Language: French Patient Instructions: Headaches Migraine and Tension Stand Alone Forms: PCP List Follow-up Care: Christi Mathew PA-C [Primary Care Provider] -
[2024-12-12] MEDS ORDERED: dexAMETHasone 4 MG TABLET PO SCH (19:00)
[2024-12-12] MEDS ORDERED: METOCLOPRAMIDE 10 MG TABLET PO SCH (19:00)
[2024-12-12] MEDS ORDERED: GUANFACINE 2 MG PO SCH (21:00)
== END 2024-12-12 19:23 | disposition home or self-care (01) ==
LOC: MS2 10:05 → ED 10:05 → MS2 20:45
PROVIDERS: ADMIT Nurse Practitioner Acute Care; ATTEND Nurse Practitioner Acute Care
DX: F98.8 Other specified behavioral and emotional disorders with onset usually occurring in childhood and adolescence; R51.9 Headache, unspecified; Z91.128 Patient's intentional underdosing of medication regimen for other reason; T50.916A Underdosing of multiple unspecified drugs, medicaments and biological substances, initial encounter; R11.2 Nausea with vomiting, unspecified; I10 Essential (primary) hypertension; Z87.891 Personal history of nicotine dependence; I16.1 Hypertensive emergency; R42 Dizziness and giddiness